=== PATIENT | male | born 1950 | race Caucasian/White ===

== ENCOUNTER 2023-09-15 08:04 | Emergency (ER) | payer MEDICARE, BC, SELFPAY ==
[2023-09-15 08:17] VITALS: BP 182/91
[2023-09-15] MEDS: SUBLIMAZE 50 MCG IV (08:45)
--- NOTE | 2023-09-15 08:56 | ED.GENMED ---
History of Present Illness
General
Chief Complaint: Musculo-Skeletal Complaint
Time Seen by Provider: 09/15/23 08:18
Travel History
Have you had any contact with someone who has COVID-19?: No
Do you have any symptoms of coronavirus? Fever > 100 degrees, chills, cough, shortness of breath, sore throat, loss of taste or smell, muscle aches, or headache?: No
History of Present Illness
History of Present Illness:
73-year-old male with history of hypertension and tobacco use presents to the emergency department for evaluation of left shoulder and arm injury after a fall. States he slipped on ice. He is adamant that he did not strike his head. Denies any
neck pain or back pain. Does not take anticoagulants but does take clopidogrel due to prior CVA.
Past History
Past History
ED Past Medical History: CVA (R weakness X 2), HTN, Hypercholesterolemia, Psychiatric (A/D) and Other (Rheumatoid arthritis , carpal tunnel)
ED Past Surgical History: Orthopedic (lumbar laminectomy; carpal tunnel release)
Social History
Tobacco: Former smoker
Alcohol: Occasional
Drug: None
Personal: Single
Living: alone
Family History
Family History: Other (reviewed and non-contributory)
Review of Systems
Review of Systems
Allergies reviewed?: Yes
All Other Systems: ROS reviewed and negative except as documented in HPI and ROS
Phy Exam
Physical Exam
Physical Exam:
GEN: Well appearing, NAD, generally disheveled, appears older than stated age
HEENT: Normocephalic atraumatic oral mucosa moist, no scleral icterus
Cardiac: Regular rate and rhythm
Lung: No respiratory distress, no tachypnea
MSK: Significant swelling to the left shoulder with no obvious deformity or sulcus left elbow and wrist range of motion normal, sensation intact distal to the shoulder injury
Skin: Good color, no pallor or jaundice, no rashes
Neuro: AO x3, cranial nerves II through XII grossly intact, moves all extremities freely
Psych: Calm, cooperative
Course
Orders/Labs/Results
Orders:
Orders
09/15/23 08:33
Fentanyl Citrate/Pf [Sublimaze] 50 mcg IV NOW STA
CR Shoulder, Trauma - Left Urgent
Reason For Exam: injury
09/15/23 09:22
Ketorolac [Toradol] 15 mg IV NOW STA
Vital Signs
Initial and Last Documented VS:
Initial Vital Signs
Temp Pulse Resp Pulse Ox
97.5 F 97 16 100
09/15/23 08:11 09/15/23 08:11 09/15/23 08:11 09/15/23 08:11
Last Documented Vital Signs
Temp Pulse Resp BP Pulse Ox
97.5 F 90 16 142/74 98
09/15/23 08:11 09/15/23 10:07 09/15/23 10:07 09/15/23 10:07 09/15/23 10:07
MDM/Problems Addressed
MDM/Problems Addressed:
X-rays left shoulder independently interpreted by me show a humeral neck fracture without significant displacement and aligned glenohumeral joint. Patient is placed in a sling and recommend close outpatient orthopedic follow-up. He has no external
signs of head trauma and is neurologically intact, no indication for CT head given that the patient is quite adamant that there was no head strike
*Critical Care Note
Total Time (30-74mins, 75-104mins- exclusive of procedures): Not Applicable
ED Attending Note
-
Portions of this chart may have been created with voice recognition software.� Occasional wrong word or��sound alike� substitutions may have occurred due to the inherent limitations of voice recognition software.
Discharge Plan
Departure
Patient Disposition: Home (Routine Discharge)
Date of Disposition: 09/15/23
Time of Disposition: 09:22
Patient with high blood pressure during this ER visit?: No
Discharge Problem:
Closed fracture of left proximal humerus
Instructions: Shoulder Fracture (DC)
Prescriptions:
No Action
lisinopril 20 MG tablet
20 mg PO DAILY
metoprolol tartrate 25 MG tablet
12.5 mg PO BID
atorvastatin 40 MG tablet
40 mg PO QPM 0RF
clopidogrel 75 MG tablet
75 mg PO DAILY Qty: 90 0RF
cyanocobalamin (vitamin B-12) 1,000 MCG tablet
1,000 mcg PO DAILY
Referrals:
Pedro Luis Vegas MD [Family Provider] -
Raul Crabtree MD [Active] -
Activity Restrictions/Additional Instructions:
Ice the shoulder often to reduce pain and swelling
Take tylenol 650mg every 6-8 hours
Interventions
Interventions:
*Risk Screen - Suicide Last Done: 09/15/23 08:11
*General Assessment Last Done: 09/15/23 08:11
*Neglect/Abuse Screening Last Done: 09/15/23 10:20
ED- Fall Risk Assessment Last Done: 09/15/23 08:17
*ED COVID-19 Vaccine History Last Done: 09/15/23 08:18
*Nursing Disposition Last Done: 09/15/23 10:20
ED-Musculoskeletal Assessment Last Done: 09/15/23 08:17
Discharge Date and Time
Discharge Date/Time: 09/15/23 10:21
[2023-09-15 10:07] VITALS: BP 142/74
== END 2023-09-15 10:21 | disposition home or self-care (01) ==
LOC: EMR 08:04
PROVIDERS: EMERGENCY PHYSICIAN Emergency Medicine; FAMILY PHYSICIAN Family Medicine
DX: S42.202A Unspecified fracture of upper end of left humerus, initial encounter for closed fracture (principal); W00.0XXA Fall on same level due to ice and snow, initial encounter; I10 Essential (primary) hypertension; E78.00 Pure hypercholesterolemia, unspecified; I69.351 Hemiplegia and hemiparesis following cerebral infarction affecting right dominant side; F41.9 Anxiety disorder, unspecified; F32.A Depression, unspecified; M06.9 Rheumatoid arthritis, unspecified; Z87.891 Personal history of nicotine dependence; Z79.02 Long term (current) use of antithrombotics/antiplatelets; Z88.8 Allergy status to other drugs, medicaments and biological substances
CPT/HCPCS: 99284; 96374; 73030

== ENCOUNTER 2023-12-21 01:52 | Emergency (ER) | payer MEDICARE, BC, SELFPAY ==
[2023-12-21 01:54] VITALS: BP 165/65; BMI 24.8
--- NOTE | 2023-12-21 02:15 | ED.GENMED ---
History of Present Illness
General
Chief Complaint: Fall
Source: patient
Exam Limitations: none
Time Seen by Provider: 12/21/23 02:06
Nursing documentation reviewed up to this point in time: agreed with
Travel History
Have you had any contact with someone who has COVID-19?: No
Do you have any symptoms of coronavirus? Fever > 100 degrees, chills, cough, shortness of breath, sore throat, loss of taste or smell, muscle aches, or headache?: No
History of Present Illness
History of Present Illness:
Patient presents to ED secondary to persistent left shoulder pain, after he tripped and fell at home this evening. Denies any other injuries from the fall. Denies headache. Denies neck pain. Denies loss of sensation or weakness. Denies chest
pain. Denies abdominal pain. Denies difficulty with ambulation.
Past History
Past History
ED Past Medical History: CVA (R weakness X 2), HTN, Hypercholesterolemia, Psychiatric (A/D) and Other (Rheumatoid arthritis , carpal tunnel)
ED Past Surgical History: Orthopedic (lumbar laminectomy; carpal tunnel release)
Social History
Tobacco: Former smoker
Alcohol: Occasional
Drug: None
Personal: Single
Living: alone
Family History
Family History: Other (reviewed and non-contributory)
Review of Systems
Review of Systems
Allergies reviewed?: Yes
All Other Systems: ROS reviewed and negative except as documented in HPI and ROS
Constitutional: Reports no symptoms
Musculoskeletal: Reports other (shoulder pain)
Skin: Reports other (abrasion)
Neurological: Reports no symptoms; Denies weakness
Phy Exam
Physical Exam
Physical Exam:
Physical Exam
General: mild painful distress, not acutely ill. afebrile
Head: nc/at. eomi
Neck: supple. normal range of motion.
Heart: s1/s2 regular rate and rhythm, no murmur. equal radial pulses.
Lungs: no acute respiratory distress. clear bilaterally. chest wall nontender to palpation.
Abdomen: normal bowel sounds. not tender.
Neuro: alert and oriented. no focal neurological deficits
Skin: superficial skin tear/abrasion noted, over prox forearm, distal to olecranon, without active bleeding
Psychiatric: well kept. interactive and cooperative
Extremities: diffuse left shoulder tenderness to palpation without obvious deformity
Course
Orders/Labs/Results
Orders:
Orders
12/21/23 02:05
Shoulder, Left, Trauma CR [CR Shoulder, Trauma - Left] Urgent
Comment:
Reason For Exam: pain and injury
12/21/23 05:19
Case Management Consult ONCE
Case Management Consult: Discharge Planning
12/21/23 06:58
Pt Eval And Treat Urgent
Activity Level: Ambulate
Vital Signs
Initial and Last Documented VS:
Initial Vital Signs
Temp Pulse Resp BP Pulse Ox
98.3 F 64 18 165/65 100
12/21/23 01:54 12/21/23 01:54 12/21/23 01:54 12/21/23 01:54 12/21/23 01:54
Last Documented Vital Signs
Temp Pulse Resp BP Pulse Ox
98.3 F 78 20 142/76 97
12/21/23 01:54 12/21/23 09:00 12/21/23 09:00 12/21/23 09:00 12/21/23 09:00
MDM/Problems Addressed
MDM/Problems Addressed:
Pt does not wish to receive any pain medication during initial evaluation.
Shoulder x-ray reviewed. Patient otherwise remains neurologically intact. Patient will be placed in splint and provided with arm sling, along with orthopedic surgery follow-up as an outpatient.
*Critical Care Note
Total Time (30-74mins, 75-104mins- exclusive of procedures): Not Applicable
ED Attending Note
-
Portions of this chart may have been created with voice recognition software.� Occasional wrong word or��sound alike� substitutions may have occurred due to the inherent limitations of voice recognition software.
Discharge Plan
Departure
Patient Disposition: Home (Routine Discharge)
Date of Disposition: 12/21/23
Time of Disposition: 03:03
Patient with high blood pressure during this ER visit?: Yes
Discharge Problem:
Fracture, humerus
Instructions: How to Use a Shoulder Sling ED, Upper Arm Fracture ED
Prescriptions:
No Action
lisinopril 20 MG tablet
20 mg PO DAILY
metoprolol tartrate 25 MG tablet
12.5 mg PO BID
atorvastatin 40 MG tablet
40 mg PO QPM 0RF
clopidogrel 75 MG tablet
75 mg PO DAILY Qty: 90 0RF
cyanocobalamin (vitamin B-12) 1,000 MCG tablet
1,000 mcg PO DAILY
Referrals:
Jose Alejandro Nicholson MD [Active] -
Pedro Luis Vegas MD [Family Provider] -
Activity Restrictions/Additional Instructions:
As discussed, please follow-up with referred orthopedic surgeon for further evaluation and treatment.
Interventions
Interventions:
*Risk Screen - Suicide Last Done: 12/21/23 09:50
*General Assessment Last Done: 12/21/23 01:54
*Neglect/Abuse Screening Last Done: 12/21/23 01:54
ED- Fall Risk Assessment Last Done: 12/21/23 01:54
*ED COVID-19 Vaccine History Last Done: 12/21/23 01:54
*Nursing Disposition Last Done: 12/21/23 09:50
ED-Musculoskeletal Assessment Last Done: 12/21/23 03:17
ED- Neurological Assessment Last Done: 12/21/23 03:17
ED-Skin Assessment Last Done: 12/21/23 03:17
Discharge Date and Time
Discharge Date/Time: 12/21/23 10:45
Print Language: CAMBODIAN
--- NOTE | 2023-12-21 08:38 | CM ---
Patient seen at bedside. Patient states that he lives alone in a 3 bedroom apartment with 3 steps to enter. Patient PCP is Dr. Vegas and he uses the [facility] for his pharmacy needs. Patient does not drive, he walks. Patient indicated that he [place] 2[place]iles [place], and that he has a friend that will help with transportation today. Therapy assessed patient and patient able to function in room. Patient plan is for discharge home with no needs. CM offered VN and patient considering. CM will continue
to follow for discharge planning needs.
Plan; home with VN vs home with no needs.
[2023-12-21 09:00] VITALS: BP 142/76
== END 2023-12-21 10:45 | disposition home or self-care (01) ==
LOC: EMR 01:52
PROVIDERS: EMERGENCY PHYSICIAN Emergency Medicine; FAMILY PHYSICIAN Family Medicine
DX: S42.212A Unspecified displaced fracture of surgical neck of left humerus, initial encounter for closed fracture (principal); W01.0XXA Fall on same level from slipping, tripping and stumbling without subsequent striking against object, initial encounter; Y92.009 Unspecified place in unspecified non-institutional (private) residence as the place of occurrence of the external cause; Z86.73 Personal history of transient ischemic attack (TIA), and cerebral infarction without residual deficits; I10 Essential (primary) hypertension; E78.00 Pure hypercholesterolemia, unspecified; M06.9 Rheumatoid arthritis, unspecified; Z87.891 Personal history of nicotine dependence
CPT/HCPCS: 99283; 73030

== ENCOUNTER → 2023-12-31 06:55 | Outpatient (REF) | payer MEDICARE, BC, SELFPAY | LOC: RAD 06:55 | PROVIDERS: ATTENDING PHYSICIAN Physician Assistant Surgical; FAMILY PHYSICIAN Family Medicine | DX: S42.292A Other displaced fracture of upper end of left humerus, initial encounter for closed fracture (principal) | CPT/HCPCS: 73200 ==

== ENCOUNTER → 2024-01-06 13:11 | Outpatient (REF) | payer MEDICARE, BC, SELFPAY ==
[2024-01-06 13:36] VITALS: BMI 24.6
[2024-01-06 14:46] LABS: Hemoglobin 10.4 g/dL (13.0-18.0); Mean Corp Hgb Conc. 34.7 g/dL (33.0-37.0); Mean Corpuscular Hgb 32.6 pg (27.0-31.0); Mean Platelet Volume 9.8 fL (7.4-10.4); Platelet Count 339 10^3/uL (130-400); Red Blood Cell Count 3.19 10^6/uL (4.70-6.10); Red Cell Dist. Width 13.4 % (11.5-14.5)
== END ==
LOC: SDSPAT 13:11
PROVIDERS: ATTENDING PHYSICIAN Orthopaedic Surgery Hand Surgery; FAMILY PHYSICIAN Family Medicine
DX: Z01.818 Encounter for other preprocedural examination (principal)
CPT/HCPCS: 36415; 85027; 93005

== ENCOUNTER 2024-01-13 06:02 | Day surgery (SDC) | payer MEDICARE, BC, SELFPAY ==
[2024-01-13] VITALS (10 sets, daily range): BP systolic 107–152; BP diastolic 43–87; BMI 24.8
[2024-01-13] MEDS: NORMOSOL-R 1000 IV (06:47)
[2024-01-13] MEDS: CELEBREX 200 MG PO (06:47)
[2024-01-13] MEDS: TYLENOL 1000 MG PO (06:47)
== END 2024-01-13 12:40 | disposition home or self-care (01) ==
LOC: SDS 06:02
PROVIDERS: ATTENDING PHYSICIAN Orthopaedic Surgery Hand Surgery; FAMILY PHYSICIAN Family Medicine
DX: S42.302A Unspecified fracture of shaft of humerus, left arm, initial encounter for closed fracture (principal); S46.012A Strain of muscle(s) and tendon(s) of the rotator cuff of left shoulder, initial encounter; X58.XXXA Exposure to other specified factors, initial encounter
CPT/HCPCS: 24515; 23410; C1713; 73060; 76000

== ENCOUNTER 2024-10-08 20:07 | Inpatient (IN) | payer MEDICARE, BC, SELFPAY ==
[2024-10-08] VITALS (10 sets, daily range): BP systolic 128–186; BP diastolic 54–90; BMI 20.9
--- NOTE | 2024-10-08 15:06 | ED.GENMED ---
History of Present Illness
General
Chief Complaint: Fall
Source: patient
Exam Limitations: none
Time Seen by Provider: 10/08/24 15:05
Nursing documentation reviewed up to this point in time: agreed with
History of Present Illness
History of Present Illness:
74-year-old male with past medical history of hypertension, hyperlipidemia, alcohol use, anxiety, depression, presents emergency department today with concerns of altered mental status. EMS reports that patient was found lying on the floor of his
apartment covered in feces. Neighbor reported to EMS that normally patient is very active within the community and leaves his apartment every day and they noticed that he did not leave his apartment for 2 days. Patient himself does not know why he
was lying on the ground, he states that not recall falling, he denies any head trauma. Denies any headache or neck pain. He denies any chest pain, shortness of breath, burning with urination, belly pain. There is no family contact information on
file. He did speak to his primary contact on file, his friend named Josué, who is the manufacturing industrial engineer at the local bar and reports that patient comes to have drinks with him every night but reports that he has not been present for the past 2 days.
Patient states that he feels well and is requesting to go home and he is confused on why he is here today.
Past History
Past History
ED Past Medical History: CVA (R weakness X 2), HTN, Hypercholesterolemia, Psychiatric (A/D) and Other (Rheumatoid arthritis , carpal tunnel)
ED Past Surgical History: Orthopedic (lumbar laminectomy; carpal tunnel release)
Social History
Tobacco: Former smoker
Alcohol: Occasional
Drug: None
Personal: Single
Living: alone
Family History
Family History: Other (reviewed and non-contributory)
Review of Systems
Review of Systems
All Other Systems: ROS reviewed and negative except as documented in HPI and ROS
Phy Exam
Physical Exam
Physical Exam:
General: Patient is chronically ill-appearing but nontoxic. Dried feces noted on lower extremities.
Skin: Warm and dry, no rashes or lesions
Head: Normocephalic, atraumatic
Eyes: Sclera non-icteric. EOMs intact. PERRLA.
Cardiac: Tachycardia, no murmurs
Peripheral Vascular: No lower extremity swelling or edema
Pulm: Normal respiratory effort, no wheezes, rales, rhonchi
Abdomen: No abdominal tenderness to palpation
Neuro: CN II-XII intact, no focal neurologic deficits. GCS 15.
Psychiatric: Oriented to person and place, but not time. Poor insight and judgement.
Course
Orders/Labs/Results
Orders:
Orders
10/08/24 14:59
Electrocardiogram (*1) Urgent
Reason for Study: Abdominal Pain
EKG- Treatment ONCE
10/08/24 15:01
Alcohol Urgent
Complete Blood Count/With Diff Urgent
Comprehensive Metabolic Panel Urgent
Creatine Phosphokinase Urgent
Comment: ADD ON
Magnesium Urgent
Comment: ADD ON
Osmolality, Random Urine Urgent
Date Specimen was Collected: 10/08/24
Time Specimen was Collected: 14:59
Comment: ADD ON
Serum Osmolality Urgent
Comment: ADD ON
Urinalysis Reflex To Culture Urgent
Date Specimen was Collected: 10/08/24
Time Specimen was Collected: 14:59
Urine Microscopic Reflex Cult Urgent
Urine Culture Urgent
ADEEL Source: U
Specimen Description:
Date Specimen was Collected: 10/08/24
Time Specimen was Collected: 14:59
10/08/24 15:21
CT Head W/o Iv Contrast Urgent
Comment:
Reason For Exam: altered mental status
10/08/24 15:22
0.9% Sodium Chloride 500 ml [Nss] 500 ml IV BOLUS
10/08/24 19:31
Admit/Transfer Patient As Directed
Co-Sign Provider:
Level of Care: Inpatient admission
Assign to:: Telemetry
Physician / Group: Pooja Guajardo
Diagnosis: hyponatremia, ETOH withdraw
Reason for Telemetry: Arrhythmia
Date to Stop Telemetry: 10/11/24
Time to Stop Telemetry: 11:00
Reason for Hospitalization: hyponatremia, ETOH withdraw
Expected length of stay greater than two midnights?: Yes
ELOS- Estimated Length of Stay in days: 3
I certify the patient meets the requirements for IP care: Yes
PRN Pain Medication Management As Directed
May give lesser potent ordered pain med per pt: Yes
preference::
Protocol:: Medication orders for pain may be administered in a
manner that supports deferring to patient preference
when the pt is:
- Requesting an ordered lesser potent pain medication.
Least to most potent pain medications are defined
as: acetaminophen < NSAID < tramadol < opioids
(morphine, oxycodone, hydromorphone).
- Requesting a lesser dose of the same medication IF
ORDERED.
- Requesting a less intrusive route of administration
if both routes are prescribed by the provider (PO <
IV).
10/08/24 19:37
Lorazepam [Ativan] 1 mg IV NOW STA
10/08/24 19:49
0.9% Sodium Chloride [Nss (Preservative Free)] 0.5 ml IV NOW STA
10/08/24 20:05
Nicotine [Nicoderm Transdermal] 14 mg TRANSDERM NOW STA
10/08/24 20:43
0.9% Sodium Chloride 1000 ml [Nss] 1,000 ml IV 100 mls/hr
0.9% Sodium Chloride [Nss (Preservative Free)] See Protocol IV PRN PRN
FOLic ACID [Folvite] 1 mg 0.9% Sodium Chloride 50 ml [Nss] 50 ml IV DAILYPRN
Lorazepam [Ativan] 1 mg IV Q1HPRN PRN
Lorazepam [Ativan] 1 mg PO Q2HPRN PRN
Lorazepam [Ativan] 2 mg IV Q1HPRN PRN
10/08/24 20:43
Case Management Consult Once
Case Management Consult: Other
Comment: Substance abuse counseling
DIETARY CONSULT Routine
Reason for Consult: Nutrition support, possible refeeding guidelines
Alcohol Urgent
B-Hydroxybutyrate Urgent
GGTP Urgent
PTT Urgent
Prothrombin Time Urgent
Urinalysis Routine
Urine Drug Abuse Screen Routine
MSAS SCORE As Directed
MSAS Score 0-4: Repeat MSAS every 2 hours until 0-4 for three consecutive assessments, then every 4 hours x 48
hours.
MSAS Score 5-7: For MILD withdrawl symptoms. Repeat MSAS and RASS every 2 hours
MSAS Score 8-11: For MODERATE withdrawal symptoms. Repeat MSAS and RASS every 1 hour. Consider ICU or IMU
level of care.
MSAS Score > 11: For SEVERE withdrawal symptoms. Repeat MSAS and RASS every 1 hour. Notify provider, consider
ICU level of care.
MSAS Additional Instructions: If no improvement or no decrease in score from severe to moderate within 12
hours, consult psychiatry
MSAS Notify Provider: Notify provider if patient requires more than 10 mg of Lorazepam in eight hour period.
DX Deep Vein Thrombosis Video Routine
10/08/24 20:52
Phenobarbital Sodium [Phenobarbital] 260 mg 0.9% Sodium Chloride 100 ml [Nss] 100 ml IV NOW
10/08/24 22:00
Metoprolol [Lopressor] 12.5 mg PO BID
10/09/24 00:00
Thiamine Injection 200 mg IV Q8
10/09/24 08:00
Clopidogrel Bisulfate [Plavix] 75 mg PO DAILY
Cyanocobalamin [Vitamin B-12] 1,000 mcg PO DAILY
FOLic ACID [Folvite] 1 mg PO DAILY
Lisinopril [Zestril] 20 mg PO DAILY
Nicotine [Nicoderm Transdermal] 21 mg TRANSDERM DAILY
Phenobarbital Sodium [Phenobarbital] 97.5 mg IV TID
10/09/24 18:00
Atorvastatin [Lipitor] 40 mg PO QPM
Enoxaparin Sodium [Lovenox] 40 mg SC QPM
10/11/24 08:00
Phenobarbital [Luminal] 64.8 mg PO TID
10/11/24 11:00
DC Protocol for Telemetry ONCE
10/11/24 20:00
Thiamine HCl [Vitamin B1] 100 mg PO BID
10/13/24 08:00
Phenobarbital [Luminal] 32.4 mg PO TID
Abnormal Lab Results
10/08/24
15:01
RBC 4.00 L 10^6/uL
(4.70-6.10)
Hct 36.7 L %
(39.0-52.0)
MCH 33.8 H pg
(27.0-31.0)
Absolute Neuts (auto) 8.0 H 10^3/uL
(1.4-6.5)
Absolute Lymphs (auto) 0.9 L 10^3/uL
(1.2-3.4)
Absolute Monos (auto) 1.2 H 10^3/uL
(0.1-0.6)
Neutrophils % 79.4 H %
(42.2-75.2)
Lymphocytes % 8.5 L %
(20.5-51.1)
Monocytes % 11.7 H %
(1.7-9.3)
Sodium 128 L mmol/L
(135-145)
Chloride 95 L mmol/L
(98-107)
Glucose 100 H mg/dl
(70-99)
Serum Osmolality 268 L mOsm/kg
(275-300)
Total Bilirubin 2.2 H mg/dl
(0.2-1.3)
Creatine Kinase 615 H U/L
(55-170)
Urine Ketones 2+ A
(Negative)
Ur Occult Blood Reflex 2+ A
(Negative)
Urine Urobilinogen 2+ A
(Neg - 1+)
Leukocyte Esterase Rfl 2+ A
(Negative)
Urine RBC 3-6 A /HPF
(0-2)
Urine WBC (Reflex) 21-25 A /HPF
(0-5)
Urine Bacteria (Reflex) Few A
(Negative)
Urine Albumin (Reflex) 2+ A
(Neg - Trace)
10/08/24 15:01
10/08/24 15:01
Vital Signs
Initial and Last Documented VS:
Initial Vital Signs
Temp Pulse Resp BP Pulse Ox
99.1 F 102 20 186/66 99
10/08/24 14:42 10/08/24 14:42 10/08/24 14:42 10/08/24 14:42 10/08/24 14:42
Last Documented Vital Signs
Temp Pulse Resp BP Pulse Ox
97.6 F 91 16 128/61 98
10/08/24 20:59 10/08/24 20:59 10/08/24 20:59 10/08/24 20:59 10/08/24 20:59
MDM/Problems Addressed
Differential Diagnosis Includes:
Differentials include rhabdomyolysis, dehydration, acute CVA, infection, hyponatremia
MDM/Problems Addressed:
74-year-old male presents emergency department today with concerns of altered mental status. He was found in his apartment covered in feces and he is confused and does not recall falling. In light of acute onset hyponatremia, altered mental
status, dehydration status, will admit for continued IV fluid management and further evaluation. Patient case discussed with hospitalist.
*Pulse Oximetry
Patient hypoxic: no
*Critical Care Note
Total Time (30-74mins, 75-104mins- exclusive of procedures): Not Applicable
ED Attending Note
-
Portions of this chart may have been created with voice recognition software.� Occasional wrong word or��sound alike� substitutions may have occurred due to the inherent limitations of voice recognition software.
Discharge Plan
Departure
Patient Disposition: Admit
Date of Disposition: 10/08/24
Time of Disposition: 17:42
Admit to: Med/Surg
Presentation/result/management discussed w/ accepting MD/DO: Hospitalist
Patient with high blood pressure during this ER visit?: Yes
Condition: Fair
Discharge Problem:
Altered mental status, Dehydration, Acute hyponatremia
Interventions
Interventions:
*Risk Screen - Suicide Last Done: 10/08/24 14:42
*General Assessment Last Done: 10/08/24 14:42
*Neglect/Abuse Screening Last Done: 10/08/24 14:42
*ED- Fall Risk Assessment Last Done: 10/08/24 20:38
*ED COVID-19 Vaccine History Last Done: 10/08/24 21:07
*Nursing Disposition Last Done: 10/08/24 20:38
ED-Musculoskeletal Assessment Last Done: 10/08/24 15:00
ED- Neurological Assessment Last Done: 10/08/24 15:00
ED-Skin Assessment Last Done: 10/08/24 15:00
Discharge Date and Time
Discharge Date/Time: 10/08/24 20:38
[2024-10-08 15:10] LABS: % Basophils 0.1 % (0-2); % Immature Granulocytes 0.3 % (0-0.5); % Lymphocytes 8.5 % (20.5-51.1); % Monocytes 11.7 % (1.7-9.3); % Neutrophils 79.4 % (42.2-75.2); Absolute Lymphocytes 0.9 10^3/uL (1.2-3.4); Absolute Monocytes 1.2 10^3/uL (0.1-0.6); Hematocrit 36.7 % (39.0-52.0); Hemoglobin 13.5 g/dL (13.0-18.0); Mean Corp Hgb Conc. 36.8 g/dL (33.0-37.0); Mean Corpuscular Hgb 33.8 pg (27.0-31.0); Mean Corpuscular Volume 91.8 fL (80.0-94.0); Mean Platelet Volume 9.7 fL (7.4-10.4); Nucleated Red Blood Cells % 0 % (-); Platelet Count 247 10^3/uL (130-400); Red Cell Dist. Width 12.8 % (11.5-14.5); White Blood Cell Count 10.1 10^3/uL (4.8-10.8)
[2024-10-08 15:12] LABS: Urine Albumin 2+ (Neg - Trace); Urine Bilirubin Negative (Negative); Urine Character Slightly Cloudy (Clear); Urine Color Yellow; Urine Glucose Negative (Negative); Urine Ketone 2+ (Negative); Urine Leukocyte 2+ (Negative); Urine Nitrite Negative (Negative); Urine Occult Blood 2+ (Negative); Urine Specific Gravity 1.015 (<1.030); Urine Urobilinogen 2+ (Neg - 1+); Urine pH 6.5 (5.0-9.0)
[2024-10-08 15:23] LABS: Urine Bacteria Few (Negative); Urine Squamous Cell 0-2 /LPF (Few); Urine White Cell 21-25 /HPF (0-5)
[2024-10-08 15:28] LABS: ALT (SGPT) 27 U/L (0-50); AST (SGOT) 55 U/L (17-59); Albumin 3.9 g/dl (3.5-5.0); Alkaline Phosphatase 104 U/L (38-126); Blood Urea Nitrogen 10 mg/dl (9-20); Calcium 9.7 mg/dl (8.4-10.2); Carbon Dioxide 24 mmol/L (22-30); Chloride 95 mmol/L (98-107); Estimated Creatinine Clearance 84 ml/min; Glucose 100 mg/dl (70-99); Potassium 4.4 mmol/L (3.5-5.1); Sodium 128 mmol/L (135-145); Total Bilirubin 2.2 mg/dl (0.2-1.3); Total Protein 7.2 g/dl (6.3-8.2); eGFR > 60.00
[2024-10-08 15:41] LABS: Magnesium 2.1 mg/dl (1.6-2.3)
[2024-10-08] MEDS: NSS 500 IV (15:50)
[2024-10-08 16:17] LABS: Creatine Phosphokinase 615 U/L (55-170)
[2024-10-08 16:18] LABS: Alcohol None Detected
[2024-10-08 17:59] LABS: Osmolality Serum 268 mOsm/kg (275-300); Osmolality Urine 440 mOsm/kg (300-900)
--- NOTE | 2024-10-08 18:31 | HPS.HSE ---
Family Physician
-
Family Physician: INTERVIEWE UNKNOWN - PT NOT
Chief Complaint
-
mental status change
History of Present Illness
Patient is a 74-year-old male with past medical history significant for essential hypertension, hyperlipidemia, anxiety/depression and Hx CVA who presented to [facility] ED for evaluation of acute mental status change. Patient lives alone
and neighbor went to check on him as he had not been seen in 2 days, he was found on the floor, covered in his own feces. Friend called 911 and brought patient for evaluation. Friend and medical proxy at bedside who helps provide history. Patient
normally is alert and able to take care of his ADLs, he is known to be incontinent of urine with frequent UTIs. She reports that patient had similar behaviors when he had last stroke. Patient denies any recent symptoms and is agitated at assessment.
Medical History
Past Medical History
Past Medical History: Reports Other
Additional Past Medical History:
essential hypertension
hyperlipidemia
anxiety/depression
Hx CVA
Hx ETOH dependency
Past Surgical History: Reports Other
Additional Past Surgical History:
back surgery
RT elbow surgery
C7-T1 Interlaminar Epidural Steroid Injection 01/27/18
Right C7-T1 Interlaminar Epidural Steroid Injection 02/28/18
Cardiac loop monitor implant ([employer] Linq, [id number]) 03/22/2019
Carpal tunnel 11/2018
Carpal tunnel 01/2020
Cardiac loop monitor explant 11/10/2021
left eye cataract surgery 06/2022
Left Humerus ORIF 01/13/24 AWR
Social History
Tobacco: Smoker (2 packs per day )
Alcohol: Daily (at least 6 beers per day)
Drug: None
Living: Alone
Family History
Family History: Unable to Obtain
Allergies / Home Medications
Allergies reflects when Allergies were last updated in [facility].
Home Medications with original date entered in [facility]
Allergy/Medication List:
Allergies
Allergy/AdvReac Type Severity Reaction Status Date / Time
infliximab [From Remicade] Allergy Hives, Verified 10/08/24 14:54
THROAT
SWELLING
Home Medications
metoprolol tartrate 25 mg tablet 12.5 mg PO BID 03/15/19
atorvastatin 40 mg tablet 40 mg PO QPM 03/23/19
clopidogrel 75 mg tablet 75 mg PO DAILY #90 tabs 03/23/19
cyanocobalamin (vitamin B-12) 1,000 mcg tablet 1,000 mcg PO DAILY 11/10/21
lisinopril 20 mg tablet 20 mg PO DAILY 10/08/24
Review of Systems
-
Unable to obtain full review of systems at this time due to: Other (acute mental status change )
Physical Exam
Vital Signs
Vital Signs
Temp Pulse Resp BP Pulse Ox
99.1 F 102 20 186/66 99
10/08/24 14:42 10/08/24 14:42 10/08/24 14:42 10/08/24 14:42 10/08/24 14:42
Physical Exam
General: Well Developed, Poor Appetite and Appears Chronically Ill
HEENT: NormoCephalic, Atraumatic, Nose Appears Normal and Ears Appear Normal
Respiratory: Clear and Non Labored Respirations
Cardiac: S1/S2, Regular Rhythm and Tachycardia; No Murmur, Rub or Gallop
Breast: Deferred by me
GI: Soft, Non Tender, Non Distended and Normal Bowel Sounds; No Organomegaly
Rectal: Deferred by Provider
Genito-urinary: Deferred by me
Musculoskeletal: No Clubbing, No Cyanosis and No Edema
Skin: Warm and IV/Catheter Site; No Rash
Neuro: Awake, Alert and Nonfocal/grossly intact
Psych: Agitated
Laboratory Results
-
10/08/24 15:01
10/08/24 15:01
Laboratory Results
Total Bilirubin 2.2 mg/dl (0.2-1.3) H 10/08/24 15:01
AST 55 U/L (17-59) 10/08/24 15:01
ALT 27 U/L (0-50) 10/08/24 15:01
Alkaline Phosphatase 104 U/L (38-126) 10/08/24 15:01
Data Reviewed
-
CT Scan: Report Reviewed by me (Head CT: No acute intracranial abnormality noted.)
Medical Tests (Nuc Med, Echo, EKG etc): Report Reviewed by me (EKG: SINUS RHYTHM WITH PREMATURE ATRIAL COMPLEXES RIGHT BUNDLE BRANCH BLOCK)
Lab Data: Labs Reviewed by me (Na+ 128, CK 615)
Impression/Plan
-
IMPRESSION/PLAN:
#acute change in mental status 2/2 hyponatremia/rhabdo vs. ETOH withdraw
Head CT: No acute intracranial abnormality noted.
EKG: SINUS RHYTHM WITH PREMATURE ATRIAL COMPLEXES
RIGHT BUNDLE BRANCH BLOCK
CK 615
- admit to telemetry
- MSAS protocol with phenobarb taper
- IVF
#hyponatremia
Na 128
- bolus NSS
- monitor BMP
#essential hypertension
- continue lisinopril
#hyperlipidemia
- continue atorvastatin
#Hx CVA
- continue clopidogrel
#anxiety/depression
#Hx ETOH dependency
Code status: full code
DVT Prophylaxis: Lovenox sq
--- NOTE | 2024-10-08 18:58 | EDRN ---
on arrival pt was completely covered in stool and urine, all the way to his toes. Pants were crusted in stool and urine, Pt. had rags stuffed into his pants which he states 'help keep him clean.' Some redness noted to his back and buttocks. Pt.
completely undressed and cleaned.
--- NOTE | 2024-10-08 19:39 | W.PN.UPDATE ---
Update Note
Progress Note Update
This is an addendum to the H&P written by Racquel Villagomez on 10/08/2024. Patient seen and examined independently with PROCEDURES TECH.
74-year-old male hypertension, hyperlipidemia, anxiety/depression, prior CVA, alcohol use disorder, presenting that he was found down on the ground in his apartment covered in feces. Does not seem to remember why on the ground. Was not seen 2
days. Patient denies complaints and wants to go home.
Patient did not drink alcohol in 3 days was drinking at least 6 beers per day at that time.
Patient tachycardic. EKG shows sinus rhythm with premature atrial complexes, right bundle branch block which is old.
Labs show mild hyponatremia sodium of 128. Creatinine kinase of 615.
Alcohol level negative.
Patient with ambulatory dysfunction/possible fall likely secondary to alcohol use disorder. Mild hyponatremia likely secondary to poor p.o. intake/alcohol use. Mild rhabdomyolysis. IV fluids, thiamine and folate, alcohol withdrawal protocol,
phenobarbital protocol.
[2024-10-08] MEDS: NSS (PRESERVATIVE FREE) 0.5 ML IV (20:00)
[2024-10-08] MEDS: ATIVAN 1 MG IV ×3 (20:00→23:13)
[2024-10-08] MEDS: NICODERM TRANSDERMAL 14 MG TRANSDERM (20:19)
[2024-10-08] MEDS: PHENOBARBITAL 104 MG IV (21:22)
[2024-10-08] MEDS: NSS 1000 IV (21:23)
[2024-10-08] MEDS: LOPRESSOR 12.5 MG PO (22:12)
[2024-10-08 23:08] LABS: INR 0.93; PT 12.8 Sec (11.4-14.6)
--- NOTE | 2024-10-08 23:08 | W.PN.UPDATE ---
Update Note
Progress Note Update
pt msas scores progressively getting worse now >8 warranting transfer to IMU for closer monitoring.
[2024-10-08 23:09] LABS: APTT 28.6 Sec (23.4-35.0)
[2024-10-08 23:29] LABS: GGTP 17 U/L (15-73)
[2024-10-08 23:30] LABS: Alcohol None Detected
[2024-10-08 23:36] LABS: B-Hydroxybutyrate 0.94 mmol/L (0.02-0.27)
[2024-10-09] VITALS (29 sets, daily range): BP systolic 125–175; BP diastolic 45–105; BMI 21.3
--- NOTE | 2024-10-09 00:01 | PTCARENOTE ---
Pt. rec'd from ED into room oriented to self only, restless, actively hallucinating. Vitals stable. NSR on the monitor. Pt. grossly incontinent of urine. Pt. settled and admission completed. Becoming more agitated even following phenobarbital
loading dose, MSAS score 8 then 9. Ativan 1 mg IV given x 2. Hospitalist [employer] Elina notified of pt.'s MSAS score and presentation, decision made to transfer pt. to IMU level of care for closer monitoring. Report given to HORTENCIA Duckworth. Pt.
transferred with belongings to room 9858.
[2024-10-09] MEDS: THIAMINE INJECTION 200 MG IV ×3 (00:13→16:11)
--- NOTE | 2024-10-09 00:17 | PTCARENOTE ---
Pt received from 4W, lethargic at this time, VSS, NSR on monitor. New IV placed. NS infusing 100mls/hr. 100% RA. CC applied. MSAS 5 at this time.
[2024-10-09 05:23] LABS: Blood Urea Nitrogen 9 mg/dl (9-20); Carbon Dioxide 21 mmol/L (22-30); Chloride 100 mmol/L (98-107); Creatine Phosphokinase 354 U/L (55-170); Estimated Creatinine Clearance 91 ml/min; Glucose 77 mg/dl (70-99); Potassium 4.6 mmol/L (3.5-5.1); Sodium 128 mmol/L (135-145); eGFR > 60.00
[2024-10-09] MEDS: NSS 1000 IV ×2 (06:35→16:11)
--- NOTE | 2024-10-09 07:47 | W.PN.HOSP.TC ---
Today's Communication/Plan
-
Continue Phenobarbital Taper, alcohol withdrawal protocol, vitamins including thiamine, folate
Assessment / Plan
Assessment / Plan
Physical Exam
General: Not in acute distress
HEENT: Normocephalic, Atraumatic
Respiratory: Clear to Auscultation Bilaterally
Cardiac: S1/S2, Regular Rate and Rhythm
GI: Soft, Non Tender, Non Distended and Normal Bowel Sounds
Musculoskeletal: No Cyanosis and No Edema
Skin: Warm. Dry.
Neuro: Awake, Alert and Nonfocal/grossly intact
Psych: Calm
Assessment/Plan
74-year-old male with past medical history of hypertension, hyperlipidemia, anxiety/depression, prior CVA, alcohol use disorder, presenting that he was found down on the ground in his apartment covered in feces. Patient did not seem to remember why
he was on the ground. Was not seen 2 days. Friend called 911 and brought patient for evaluation. Friend and medical proxy at bedside who helps provide history. Patient denied complaints and initially said he wanted to go home. Patient did not
drink alcohol in 3 days was drinking at least 6 beers per day at that time. Patient tachycardic initially. EKG showed sinus rhythm with premature atrial complexes, right bundle branch block which is old. Labs showed mild hyponatremia sodium of 128.
Creatinine kinase of 615. Alcohol level negative. Patient with ambulatory dysfunction/possible fall likely secondary to alcohol use disorder. Mild hyponatremia likely secondary to poor p.o. intake/alcohol use. Patient normally is alert and able to
take care of his ADLs, he is known to be incontinent of urine with frequent UTIs. She reports that patient had similar behaviors when he had last stroke.
#ambulatory dysfunction/possible fall likely secondary to alcohol use disorder.
#acute change in mental status suspected secondary to alcohol use
- Continue monitoring in IMU level of care for now given recent high MSAS scores
- Continue MSAS protocol with thiamine and folate, alcohol withdrawal protocol, phenobarbital protocol
- IVF
- Continue monitoring in IMU
#hyponatremia likely secondary to poor p.o. intake/alcohol use
- Na 128 without any change
- IV fluids being given
- Monitor BMP
#Elevated CPK/Mild Rhabdomyolysis
-CPK 615 initially --> improved to 354
-Improving with IV fluids
#essential hypertension
- continue lisinopril
#hyperlipidemia
- continue atorvastatin
#Hx CVA
- continue clopidogrel
#anxiety/depression
#Hx ETOH dependency
Code status: full code
DVT Prophylaxis: Lovenox sq
Anticipated Discharge: > 48 hours
Subjective/Interval History
-
Date of Service: October 09, 2024
Patient was seen and examined. Overnight, patient was transferred to IMU level of care due to increased MSAS scores. He was sleeping this morning, and he was able to awakened somewhat.
Objective Data
-
Labs:
Laboratory Results
10/08/24 10/09/24
22:52 04:30
PT 12.8
INR 0.93
APTT 28.6
Sodium 128 L
Potassium 4.6
Chloride 100
Carbon Dioxide 21 L
BUN 9
Creatinine 0.6 L
Glucose 77
Calcium 9.0
Vital Signs:
Vital Signs
Temp Pulse Resp BP Pulse Ox
97 F 70 19 150/58 100
10/09/24 07:38 10/09/24 06:30 10/09/24 06:30 10/09/24 06:00 10/09/24 06:30
I&O
10/08/24 10/09/24 10/10/24
06:59 06:59 06:59
Intake Total 700 / 700
Output Total 350 / 350
Balance 350 / 350
[2024-10-09] MEDS: VITAMIN B-12 1000 MCG PO (09:00)
[2024-10-09] MEDS: PLAVIX 75 MG PO (09:00)
[2024-10-09] MEDS: LOPRESSOR 12.5 MG PO ×2 (09:00→19:46)
[2024-10-09] MEDS: ZESTRIL 20 MG PO (09:00)
[2024-10-09] MEDS: FOLVITE 1 MG PO (09:00)
[2024-10-09] MEDS: NICODERM TRANSDERMAL 21 MG TRANSDERM (09:00)
[2024-10-09] MEDS: PHENOBARBITAL 97.5 MG IV ×3 (09:04→21:21)
--- NOTE | 2024-10-09 10:55 | CM ---
CM following re: discharge planning.
Reviewed pt's chart, met with pt. CM spoke to pt;'s sister eulalia [phone] and pt's friend/barrel plater Josué
Pt is a 74 year old male, admitted with primary dx of acute mental status change. Per EMS, he was found on the floor, covered in his own feces.
Pt is not a great historian. Pt's sister eulalia called and she stated that pt's landlord called her and stated that pt will not be able to return back to his apartment because he made his apartment inhabitable. Pt's sister stated she cannot take the
pt to her place in [facility], pt's brother lives in [place] and cannot help neither. Pt's sister did say that she does not have a good report with the pt even she helped him to get a new apartment 3 years ago when pt made his old apartment inhabitable. Per
sister, pt had CVA in 2019, went to [facility] and signed himself out from both SNFs. Per sister, pt is [place] and enrolled with [employer] for benefits, mostly medication coverage. Pt's sister went to tears asking to
help his brother. Emotional support offered and provided.
CM spoke to pt's friend Josué who is listed as a personnel technician. Josué stated he is not pt's friend, his is a barrel plater and works in a bar one block down pt's apartment. per Josué pt comes to the bar every morning to have 3 12Oz beer and afternoon for
the same amount of drink. Per Josué, he noticed that pt became more confused than usual and he stated he feels that pt has Dementia. Josué expressed his disappointed feelings regarding pt's inability to return back to his apartment. Josué did say that
pt has a sister and she and the pt are not getting along with each other.
Pt referred to [facility] will meet with the pt when clinically appropriate
PCP: [facility]
D/C plan: uncertain at this time and will depend on pt's progress.
CM will follow with discharge plan updates as hospitalization progresses
--- NOTE | 2024-10-09 12:00 | PTCARENOTE ---
Complete assessment done and documented in worklist. MSAS=4. PT oriented to name only, Pt will follow simple commands, and the go back to sleep. HR SR with BBB, O2 sat=98-99% on R/A. Condom cath in place. Pt IMU status, and may go to IMU bed when
available.
[2024-10-09] MEDS: LOVENOX 40 MG SC (18:29)
[2024-10-09] MEDS: LIPITOR PO ×2 (18:29→18:32)
--- NOTE | 2024-10-09 18:33 | PTCARENOTE ---
Peritoneal scrub done, but pt remains with urine odor on skin/pores. Pt busted and turned.
[2024-10-09] MEDS: ATIVAN 1 MG PO (19:46)
[2024-10-09 20:20] LABS: Amphetamines Negative (Negative); Barbiturates Positive (Negative); Benzodiazepines Positive (Negative); Buprenorphine Negative (Negative); Cocaine Negative (Negative); Marijuana Negative (Negative); Methadone Negative (Negative); Methamphetamines Negative (Negative); Opiates Negative (Negative); Phencyclidine Negative (Negative); Tricyclic Antidepressants Negative (Negative)
[2024-10-09 20:37] LABS: Fentanyl, Urine Negative (Negative)
[2024-10-09 20:48] LABS: Urine Albumin Negative (Neg - Trace); Urine Bilirubin Negative (Negative); Urine Character Clear (Clear); Urine Color Yellow; Urine Glucose Negative (Negative); Urine Ketone 3+ (Negative); Urine Leukocyte Negative (Negative); Urine Nitrite Negative (Negative); Urine Occult Blood Negative (Negative); Urine Urobilinogen 2+ (Neg - 1+)
--- NOTE | 2024-10-09 21:05 | PTCARENOTE ---
assumed care, pt oriented to name and only, MSAS per worklist, follows commands, pt c/o shoulder pain LOCATION AND MEASUREMENT TECHNICIAN made aware, NS on the monitor with PACs, in and out AFIB LOCATION AND MEASUREMENT TECHNICIAN made aware, EKG ordered, + radials, doppler pedals, Lungs clear on RA 99%, BSx4
hyperactive, CC draining yellow output, 20G RFA NS 100ml, safe environment provided, bed alarm on, otherwise refer to documentation.
[2024-10-09] MEDS: PERCOCET 5/325 1 TABLET PO (21:20)
[2024-10-10] VITALS (12 sets, daily range): BP systolic 125–167; BP diastolic 40–63; BMI 21.0
[2024-10-10] MEDS: THIAMINE INJECTION 200 MG IV ×4 (00:59→23:56)
[2024-10-10] MEDS: NSS 1000 IV ×2 (01:00→22:41)
[2024-10-10 04:26] LABS: Hematocrit 33.8 % (39.0-52.0); Hemoglobin 11.8 g/dL (13.0-18.0); Mean Corp Hgb Conc. 34.9 g/dL (33.0-37.0); Mean Corpuscular Hgb 33.1 pg (27.0-31.0); Mean Corpuscular Volume 94.7 fL (80.0-94.0); Mean Platelet Volume 9.8 fL (7.4-10.4); Platelet Count 193 10^3/uL (130-400); Red Blood Cell Count 3.57 10^6/uL (4.70-6.10); Red Cell Dist. Width 13.2 % (11.5-14.5); White Blood Cell Count 7.4 10^3/uL (4.8-10.8)
[2024-10-10 04:31] LABS: Blood Urea Nitrogen 9 mg/dl (9-20); Calcium 8.6 mg/dl (8.4-10.2); Carbon Dioxide 23 mmol/L (22-30); Chloride 101 mmol/L (98-107); Creatine Phosphokinase 83 U/L (55-170); Estimated Creatinine Clearance 78 ml/min; Glucose 76 mg/dl (70-99); Magnesium 1.9 mg/dl (1.6-2.3); Potassium 3.8 mmol/L (3.5-5.1); Sodium 128 mmol/L (135-145); eGFR > 60.00
[2024-10-10] MEDS: PHENOBARBITAL 97.5 MG IV (08:08)
[2024-10-10] MEDS: NICODERM TRANSDERMAL 21 MG TRANSDERM (08:11)
[2024-10-10] MEDS: LOPRESSOR PO ×2 (08:15→22:43)
[2024-10-10] MEDS: FOLVITE PO (08:15)
[2024-10-10] MEDS: VITAMIN B-12 PO (08:16)
[2024-10-10] MEDS: ZESTRIL PO (08:16)
[2024-10-10] MEDS: PLAVIX PO (08:16)
--- NOTE | 2024-10-10 08:18 | W.PN.HOSP.TC ---
Today's Communication/Plan
-
See plan
Assessment / Plan
Assessment / Plan
Physical Exam
General: Not in acute distress
HEENT: Normocephalic, Atraumatic
Respiratory: Clear to Auscultation Bilaterally
Cardiac: S1/S2, Regular Rate and Rhythm
GI: Soft, Non Tender, Non Distended and Normal Bowel Sounds
Musculoskeletal: No Cyanosis and No Edema
Skin: Warm. Dry.
Neuro: Lethargic.
Psych: Calm
Assessment/Plan
74-year-old male with past medical history of hypertension, hyperlipidemia, anxiety/depression, prior CVA, alcohol use disorder, presenting that he was found down on the ground in his apartment covered in feces. Patient did not seem to remember why
he was on the ground. Was not seen 2 days. Friend called 911 and brought patient for evaluation. Friend and medical proxy at bedside who helps provide history. Patient denied complaints and initially said he wanted to go home. Patient did not
drink alcohol in 3 days was drinking at least 6 beers per day at that time. Patient tachycardic initially. EKG showed sinus rhythm with premature atrial complexes, right bundle branch block which is old. Labs showed mild hyponatremia sodium of 128.
Creatinine kinase of 615. Alcohol level negative. Patient with ambulatory dysfunction/possible fall likely secondary to alcohol use disorder. Mild hyponatremia likely secondary to poor p.o. intake/alcohol use. Patient normally is alert and able to
take care of his ADLs, he is known to be incontinent of urine with frequent UTIs. She reports that patient had similar behaviors when he had last stroke.
#ambulatory dysfunction/possible fall likely secondary to alcohol use disorder.
#acute change in mental status suspected secondary to alcohol use
- Continue monitoring in IMU level of care for now given recent high MSAS scores
- Continue MSAS protocol with thiamine and folate, alcohol withdrawal protocol, phenobarbital protocol
- IVF
#hyponatremia likely secondary to poor p.o. intake/alcohol use
- Na 128 without any change
- IV fluids given
- Monitor BMP
#Elevated CPK/Mild Non-Traumatic Rhabdomyolysis
-CPK 615 initially --> improved to 354 --> now down to normal after IV fluids
#essential hypertension
- continue lisinopril
#hyperlipidemia
- continue atorvastatin
#Hx CVA
- continue clopidogrel
#anxiety/depression
#Hx ETOH dependency
Code status: full code
DVT Prophylaxis: Lovenox sq
Anticipated Discharge: > 48 hours
Subjective/Interval History
-
Date of Service: October 10, 2024
Patient was seen and examined. Overnight he needed Percocet for shoulder pain. No other new symptoms or complaints.
Objective Data
-
Labs:
Laboratory Results
10/10/24
03:46
WBC 7.4
Hgb 11.8 L
Hct 33.8 L
Plt Count 193 D
Sodium 128 L
Potassium 3.8
Chloride 101
Carbon Dioxide 23
BUN 9
Creatinine 0.7
Glucose 76
Calcium 8.6
Vital Signs:
Vital Signs
Temp Pulse Resp BP Pulse Ox
97.8 F 62 20 125/40 99
10/10/24 07:38 10/10/24 06:00 10/10/24 06:00 10/10/24 06:00 10/09/24 21:45
I&O
10/09/24 10/10/24 10/11/24
06:59 06:59 06:59
Intake Total 700 / 700 2640 / 2640
Output Total 350 / 350 1100 / 1100
Balance 350 / 350 1540 / 1540
--- NOTE | 2024-10-10 13:27 | PN.CDI ---
CDI
- -
CDI:
Physician Documentation Request
Admit Date: 10/08/24 20:07
Dear Doctor Nabil,
Patient found on ground covered in feces prior to arrival. Last seen 2 days ago. History of alcohol use disorder.
Progress notes include a diagnosis of rhabdomyolysis.
Please clarify the type of rhabdomyolysis
Traumatic
Non-traumatic
Other
Use of terms such as suspected, likely, concern for, or probable (associated with a specific diagnosis that is being evaluated, monitored, or treated as if it exists) are acceptable and can be coded in the inpatient setting, when documented at the
time of discharge.
Thank you,
Jeanne Clark RN, BSN
CDI Specialist
tiger text
Please use your independent medical judgment in providing your response.
[2024-10-10] MEDS: PHENOBARBITAL IV ×2 (15:48→21:21)
--- NOTE | 2024-10-10 15:59 | PTCARENOTE ---
Addendum entered by Yashira Angel RN 10/10/24 19:08:
Pt knows he is at the hospital but doesn't know why he is here.
Original Note:
Assuemed care of pt at aprox 1300. Pt very lethargic but awakes when asked a question. SR on monitor. NS infusing. Pt does not want to eat any lunch. CC remains on draining yellow urine. MSAS done per protocol.
[2024-10-10] MEDS: LIPITOR PO (19:33)
[2024-10-10] MEDS: LOVENOX 40 MG SC (19:33)
--- NOTE | 2024-10-10 20:03 | PTCARENOTE ---
Pt knows he is at the hospital but doesn't know why he is here.
Original Note:
Assuemed care of pt at aprox 1300. Pt very lethargic but awakes when asked a question. SR on monitor. NS infusing. Pt does not want to eat any lunch. CC remains on draining caitlin urine. MSAS done per protocol.
--- NOTE | 2024-10-10 20:05 | PTCARENOTE ---
Pt knows he is at the hospital but doesn't know why he is here.
Original Note:
Assuemed care of pt at aprox 1300. Pt very lethargic but awakes when asked a question. SR on monitor. NS infusing. Pt does not want to eat any lunch. CC remains on caitlin yellow urine. MSAS done per protocol.
--- NOTE | 2024-10-10 20:35 | PTCARENOTE ---
At aprox 1550 Dr Ferrer made aware of patients continued lethargy through the day, phenobarital held.
--- NOTE | 2024-10-10 21:13 | PTCARENOTE ---
Pt has been sleeping all day. Vitals remain stable. Pt refused to eat anything for lunch or breakfast . He does wake up when spoken to but just wants to sleep. Pt turned and repositioned throughout my shift. CC draining caitlin urine. IVF infusing.
[2024-10-11] VITALS (12 sets, daily range): BP systolic 105–180; BP diastolic 47–72; BMI 22.0
[2024-10-11 06:50] LABS: Blood Urea Nitrogen 9 mg/dl (9-20); Calcium 8.6 mg/dl (8.4-10.2); Carbon Dioxide 17 mmol/L (22-30); Chloride 106 mmol/L (98-107); Estimated Creatinine Clearance 96 ml/min; Glucose 70 mg/dl (70-99); Magnesium 1.8 mg/dl (1.6-2.3); Potassium 3.9 mmol/L (3.5-5.1); Sodium 131 mmol/L (135-145); eGFR > 60.00
--- NOTE | 2024-10-11 07:02 | W.PN.HOSP.TC ---
Today's Communication/Plan
-
See plan
Left upper extremity x-ray due to pain and weakness from left arm pain (history of LUE fracture and surgery) and ortho consult given complex left upper extremity history including prior rotator cuff tear and fracture with surgery
Assessment / Plan
Assessment / Plan
Physical Exam
General: Not in acute distress
HEENT: Normocephalic, Atraumatic
Respiratory: Clear to Auscultation Bilaterally
Cardiac: S1/S2, Regular Rate and Rhythm
GI: Soft, Non Tender, Non Distended and Normal Bowel Sounds
Musculoskeletal: No Cyanosis and No Edema
Skin: Warm. Dry.
Neuro: Intermittently awake.
Psych: Calm
Assessment/Plan
74-year-old male with past medical history of hypertension, hyperlipidemia, anxiety/depression, prior CVA, alcohol use disorder, presenting that he was found down on the ground in his apartment covered in feces. Patient did not seem to remember why
he was on the ground. Was not seen 2 days. Friend called 911 and brought patient for evaluation. Friend and medical proxy at bedside who helps provide history. Patient denied complaints and initially said he wanted to go home. Patient did not
drink alcohol in 3 days was drinking at least 6 beers per day at that time. Patient tachycardic initially. EKG showed sinus rhythm with premature atrial complexes, right bundle branch block which is old. Labs showed mild hyponatremia sodium of 128.
Creatinine kinase of 615. Alcohol level negative. Patient with ambulatory dysfunction/possible fall likely secondary to alcohol use disorder. Mild hyponatremia likely secondary to poor p.o. intake/alcohol use. Patient normally is alert and able to
take care of his ADLs, he is known to be incontinent of urine with frequent UTIs. She reports that patient had similar behaviors when he had last stroke.
#ambulatory dysfunction/possible fall likely secondary to alcohol use disorder.
#acute change in mental status suspected secondary to alcohol use
- Okay to transfer to telemetry
- Continue MSAS protocol with thiamine and folate, alcohol withdrawal protocol, phenobarbital protocol
#hyponatremia likely secondary to poor p.o. intake/alcohol use
- Na 128, improved to 131
- IV fluids given
- Monitor BMP
#Elevated CPK/Mild Non-Traumatic Rhabdomyolysis
-CPK 615 initially --> improved to 354 --> then down to normal after IV fluids
#Left Arm - trouble moving left arm secondary to pain
#History of left humeral shaft fracture and left rotator cuff tear status post left humeral shaft open reduction internal fixation and left open rotator cuff repair in January [address] Hernesto Raines
-Patient reported that his left arm hurts; he can't lift his left arm above his shoulder. No swelling or bruising noted
-Neurovascular checks
-Check X-Ray
-Needs orthopedics consultation since LUE severe weakness (e.g. inability to abduct or flex shoulder) and pain - patient had a prior rotator cuff tear in 2023 -- appreciate orthopedics
#essential hypertension
- continue lisinopril
#hyperlipidemia
- continue atorvastatin
#Hx CVA
- continue clopidogrel
#anxiety/depression
#Hx ETOH dependency
Code status: full code
DVT Prophylaxis: Lovenox sq
Anticipated Discharge: > 48 hours
Subjective/Interval History
-
Date of Service: October 11, 2024
Patient was seen and examined. He denied any symptoms or complaints.
Objective Data
-
Labs:
Laboratory Results
10/11/24
06:04
Sodium 131 L
Potassium 3.9
Chloride 106
Carbon Dioxide 17 L
BUN 9
Creatinine 0.5 L
Glucose 70
Calcium 8.6
Vital Signs:
Vital Signs
Temp Pulse Resp BP Pulse Ox
98.4 F 86 15 168/58 99
10/10/24 23:22 10/11/24 06:00 10/11/24 06:00 10/11/24 06:00 10/11/24 06:00
I&O
10/10/24 10/11/24 10/12/24
06:59 06:59 06:59
Intake Total 2640 / 2740 900 / 900
Output Total 1100 / 1100 400 / 400
Balance 1540 / 1640 500 / 500
[2024-10-11] MEDS: NICODERM TRANSDERMAL 21 MG TRANSDERM (08:22)
[2024-10-11] MEDS: THIAMINE INJECTION 200 MG IV ×2 (08:22→15:14)
[2024-10-11] MEDS: NSS 1000 IV ×2 (08:23→22:24)
[2024-10-11] MEDS: PLAVIX 75 MG PO (08:33)
[2024-10-11] MEDS: FOLVITE 1 MG PO (08:34)
[2024-10-11] MEDS: LOPRESSOR 12.5 MG PO (08:34)
[2024-10-11] MEDS: ZESTRIL 20 MG PO (08:34)
[2024-10-11] MEDS: VITAMIN B-12 1000 MCG PO (08:40)
[2024-10-11] MEDS: LUMINAL 64.8 MG PO ×3 (08:41→22:26)
--- NOTE | 2024-10-11 10:48 | PTCARENOTE ---
Pt awake this AM, very weak, needing help w/ eating breakfast. Took medications. Oriented to self and place, place being 'hospital'. Uncooperative w/ care at times, quickly agitated and dismissive but mostly pleasant and expresses appreciation of
staff. VSS.
[2024-10-11] MEDS: APRESOLINE 5 MG IV (14:32)
--- NOTE | 2024-10-11 14:41 | PTCARENOTE ---
BP elevated 180/69. 5mg IV hydralazine given as ordered. Pt ate well for lunch. More alert and conversant, still confused at times but pleasant and cooperative.
--- NOTE | 2024-10-11 14:46 | CM ---
CM following re: discharge planning.
Reviewed pt's chart, met with pt. Pt is able to have some conversation today.
Pt reports he thinks hi s apartment is gone and he will not have to place to live. Pt confirmed he goes to next door bar to see his friend rashi Moses in a morning to have 3 beers and afternoon to have 3 beers and pt admitted he has been drinking
a lot. Pt stated his 'apartment is a mass'. Pt stated he has a sister and a brother and pt did not say anything regarding his relationship with his siblings.
Pt stated he is very weak and he will need to go to rehab facility and per pt he might live there.
PT and OT will evaluate the pt to determine a level of care at discharge.
D/C plan: preferred and accepted SNF.
CM will follow with discharge plan updates as hospitalization progresses
[2024-10-11] MEDS: LUMINAL PO (15:27)
--- NOTE | 2024-10-11 16:46 | PTCARENOTE ---
report received. pt transferred to Pending sale to [facility]. [id number]. vss. nsr. bed alarm active. call poe in reach. will monitor.
[2024-10-11] MEDS: ATIVAN 1 MG IV ×2 (16:58→19:42)
[2024-10-11] MEDS: NSS IV (17:45)
[2024-10-11] MEDS: LIPITOR PO (17:54)
[2024-10-11] MEDS: LOVENOX SC (17:54)
[2024-10-11] MEDS: NSS (PRESERVATIVE FREE) 1 ML IV (19:42)
[2024-10-11] MEDS: LOPRESSOR PO (20:23)
[2024-10-11] MEDS: VITAMIN B1 PO (20:23)
[2024-10-12 07:22] VITALS: BP 147/55
[2024-10-12 07:42] LABS: Blood Urea Nitrogen 7 mg/dl (9-20); Calcium 8.7 mg/dl (8.4-10.2); Carbon Dioxide 23 mmol/L (22-30); Chloride 106 mmol/L (98-107); Estimated Creatinine Clearance 96 ml/min; Glucose 111 mg/dl (70-99); Magnesium 1.9 mg/dl (1.6-2.3); Sodium 135 mmol/L (135-145); eGFR > 60.00
--- NOTE | 2024-10-12 08:26 | W.PN.UPDATE ---
Update Note
Progress Note Update
Full orthopedic consult to be dictated:
Dx: Open reduction internal fixation left humeral shaft and left open rotator cuff repair January 13, [address] Raines
Plan: Orthopedics request to see patient for left upper extremity weakness. He has undergone open reduction internal fixation left humeral shaft and left open rotator cuff repair by Dr. Raines on January 13, 2024. According to office notes he
was last seen January 2024 with recommendations to start range of motion exercises but he never returned for follow-up as recommended. He was recently readmitted because he was found on his floor then readmitted to the hospital. X-rays of the left
humerus/elbow show plate holding nice reduction of the humerus fracture and callus formation noted. No new acute fractures noted. Tried to evaluate patient this morning but he is obtunded. Apparently last night he was confused and all over the
place so he was medicated. Examination of the left upper extremity shows well-healed surgical incision. No warmth, erythema or pain. Passively I am able to abduct him 35 degrees, externally rotate 30 degrees and internally rotate 20 degrees. No
point tenderness noted throughout the upper extremity. Hand is warm to touch and pulses are palpable. Orthopedics will continue to follow and hopefully evaluate him when he is more alert.
[2024-10-12] MEDS: FOLVITE PO (09:17)
[2024-10-12] MEDS: LOPRESSOR PO (09:18)
[2024-10-12] MEDS: PLAVIX PO (09:19)
[2024-10-12] MEDS: VITAMIN B1 PO (09:19)
[2024-10-12] MEDS: LUMINAL PO (09:19)
[2024-10-12] MEDS: VITAMIN B-12 PO (09:19)
[2024-10-12] MEDS: NICODERM TRANSDERMAL 21 MG TRANSDERM (09:20)
[2024-10-12] MEDS: ZESTRIL PO (09:20)
--- NOTE | 2024-10-12 09:26 | PTCARENOTE ---
Pt unarousable to verbal. Arousable to tactile and sternal rub. Drowsy, lethargic. Unable to take PO meds. Per nightshift report, pt did receive 1mg IV ativan overnight for msas 8 and agitation.
--- NOTE | 2024-10-12 10:17 | PTCARENOTE ---
Pt incontinent of bladder, saturated in bed. Pt washed, new gown and linens. Pt more awake but still drowsy. When asked to roll on his side, pt stated 'No, I'm not doing anything I don't want to do.' Pt turned and washed in bed with assistx2. Pt
agitated, swatting at staff and nursing students. Offered pt breakfast, pt declined and stated he was not hungry. Pt refused PO meds. Only oriented to self. Bed alarm in place. Pt currently resting comfortably in bed. Asleep/drowsy, but arousable to
verbal+tactile.
[2024-10-12] MEDS: LUMINAL 64.8 MG PO ×3 (12:09→22:11)
[2024-10-12 12:30] VITALS: BP 159/71
--- NOTE | 2024-10-12 15:12 | W.PN.HOSP.TC ---
Today's Communication/Plan
-
Continue Alcohol Withdrawal protocol -- high risk withdrawal
Assessment / Plan
Assessment / Plan
Physical Exam
General: Not in acute distress
HEENT: Normocephalic, Atraumatic
Respiratory: Clear to Auscultation Bilaterally
Cardiac: S1/S2, Regular Rate and Rhythm
GI: Soft, Non Tender, Non Distended and Normal Bowel Sounds
Musculoskeletal: No Cyanosis and No Edema
Skin: Warm. Dry.
Neuro: Intermittently awake, response to questions.
Psych: Calm
Assessment/Plan
74-year-old male with past medical history of hypertension, hyperlipidemia, anxiety/depression, prior CVA, alcohol use disorder, presenting that he was found down on the ground in his apartment covered in feces. Patient did not seem to remember why
he was on the ground. Was not seen 2 days. Friend called 911 and brought patient for evaluation. Friend and medical proxy at bedside who helps provide history. Patient denied complaints and initially said he wanted to go home. Patient did not
drink alcohol in 3 days was drinking at least 6 beers per day at that time. Patient tachycardic initially. EKG showed sinus rhythm with premature atrial complexes, right bundle branch block which is old. Labs showed mild hyponatremia sodium of 128.
Creatinine kinase of 615. Alcohol level negative. Patient with ambulatory dysfunction/possible fall likely secondary to alcohol use disorder. Mild hyponatremia likely secondary to poor p.o. intake/alcohol use. Patient normally is alert and able to
take care of his ADLs, he is known to be incontinent of urine with frequent UTIs. She reports that patient had similar behaviors when he had last stroke.
#ambulatory dysfunction/possible fall likely secondary to alcohol use disorder.
#acute change in mental status suspected secondary to alcohol use
- Continue MSAS protocol with thiamine and folate, alcohol withdrawal protocol, phenobarbital protocol
- Continue monitoring on tele
#hyponatremia likely secondary to poor p.o. intake/alcohol use
- Na 128, improved to 135 now
- IV fluids given
- Monitor BMP
#Elevated CPK/Mild Non-Traumatic Rhabdomyolysis
-CPK 615 initially --> improved to 354 --> then down to normal after IV fluids
#Left Arm - trouble moving left arm secondary to pain
#History of left humeral shaft fracture and left rotator cuff tear status post left humeral shaft open reduction internal fixation and left open rotator cuff repair in January [address] Hernesto Raines
-Patient reported that his left arm hurts; he can't lift his left arm above his shoulder. No swelling or bruising noted
-Neurovascular checks
-X-ray (from 10/11/24) noted
-Needs orthopedics consultation since LUE severe weakness (e.g. inability to abduct or flex shoulder) and pain - patient had a prior rotator cuff tear in 2023 -- appreciate orthopedics
#essential hypertension
- continue lisinopril
#hyperlipidemia
- continue atorvastatin
#Hx CVA
- continue clopidogrel
#anxiety/depression
#Hx ETOH dependency
Code status: full code
DVT Prophylaxis: Lovenox sq
Anticipated Discharge: > 48 hours
Subjective/Interval History
-
Date of Service: October 12, 2024
Patient was seen and examined. He denied any symptoms, responded to questions okay.
Objective Data
-
Labs:
Laboratory Results
10/12/24
06:35
Sodium 135
Potassium 4.0
Chloride 106
Carbon Dioxide 23
BUN 7 L
Creatinine 0.6 L
Glucose 111 H
Calcium 8.7
Vital Signs:
Vital Signs
Temp Pulse Resp BP Pulse Ox
98.1 F 89 16 159/71 100
10/12/24 12:30 10/12/24 12:30 10/12/24 12:30 10/12/24 12:30 10/12/24 12:30
I&O
10/11/24 10/12/24 10/13/24
06:59 06:59 06:59
Intake Total 900 / 1140 2880 / 2880
Output Total 400 / 400 200 / 200
Balance 500 / 740 2680 / 2680
[2024-10-12 15:41] VITALS: BP 161/64
[2024-10-12] MEDS: LIPITOR PO (17:55)
[2024-10-12] MEDS: LOVENOX SC (17:56)
[2024-10-12 19:30] VITALS: BP 163/83
[2024-10-12] MEDS: VITAMIN B1 100 MG PO (22:11)
[2024-10-12] MEDS: LOPRESSOR 12.5 MG PO (22:11)
[2024-10-13 00:41] VITALS: BP 147/53
[2024-10-13 03:08] VITALS: BP 160/68
[2024-10-13 07:40] LABS: Blood Urea Nitrogen 6 mg/dl (9-20); Calcium 9.3 mg/dl (8.4-10.2); Carbon Dioxide 25 mmol/L (22-30); Chloride 106 mmol/L (98-107); Estimated Creatinine Clearance 96 ml/min; Glucose 98 mg/dl (70-99); Magnesium 1.9 mg/dl (1.6-2.3); Phosphorus 3.6 mg/dl (2.5-4.5); Potassium 4.4 mmol/L (3.5-5.1); Sodium 136 mmol/L (135-145); eGFR > 60.00
[2024-10-13] MEDS: VITAMIN B-12 PO (08:57)
[2024-10-13] MEDS: ZESTRIL PO (08:57)
[2024-10-13] MEDS: PLAVIX PO (08:57)
[2024-10-13] MEDS: VITAMIN B1 PO (08:57)
[2024-10-13] MEDS: LOPRESSOR PO (08:57)
[2024-10-13] MEDS: FOLVITE PO (08:57)
[2024-10-13] MEDS: NICODERM TRANSDERMAL 21 MG TRANSDERM (09:00)
[2024-10-13 11:08] VITALS: BP 156/59
[2024-10-13] MEDS: LUMINAL 32.4 MG PO ×3 (12:03→23:10)
--- NOTE | 2024-10-13 12:56 | W.PN.UPDATE ---
Update Note
Progress Note Update
attempted eval this AM however pt was unable to be aroused for physical exam.
-no significant reactive discomfort with PROM of the left shoulder
-x-rays do not show any significant acute pathology- if there was a fall, more likely soft tissue injury about the RC suspected which can be folowed on an outpatient f/u
-can attempt to reexamine pt if mental status improves; can consider CT scan to r/o fx but less likely given PROM without reaction
Ortho surg will follow peripherally at this time but can reengage with further concerns.
--- NOTE | 2024-10-13 14:42 | W.PN.HOSP.TC ---
Today's Communication/Plan
-
High risk alcohol withdrawal patient
Complete phenobarb taper
SNF placement pending
Assessment / Plan
Assessment / Plan
Physical Exam
General: Not in acute distress
HEENT: Normocephalic, Atraumatic
Respiratory: Clear to Auscultation Bilaterally
Cardiac: S1/S2, Regular Rate and Rhythm
GI: Soft, Non Tender, Non Distended and Normal Bowel Sounds
Musculoskeletal: No Cyanosis and No Edema
Skin: Warm. Dry.
Neuro: Intermittently awake, response to questions.
Psych: Intermittently agitated
Assessment/Plan
74-year-old male with past medical history of hypertension, hyperlipidemia, anxiety/depression, prior CVA, alcohol use disorder, presenting that he was found down on the ground in his apartment covered in feces. Patient did not seem to remember why
he was on the ground. Was not seen 2 days. Friend called 911 and brought patient for evaluation. Friend and medical proxy at bedside who helps provide history. Patient denied complaints and initially said he wanted to go home. Patient did not
drink alcohol in 3 days was drinking at least 6 beers per day at that time. Patient tachycardic initially. EKG showed sinus rhythm with premature atrial complexes, right bundle branch block which is old. Labs showed mild hyponatremia sodium of 128.
Creatinine kinase of 615. Alcohol level negative. Patient with ambulatory dysfunction/possible fall likely secondary to alcohol use disorder. Mild hyponatremia likely secondary to poor p.o. intake/alcohol use. Patient normally is alert and able to
take care of his ADLs, he is known to be incontinent of urine with frequent UTIs. She reports that patient had similar behaviors when he had last stroke.
#ambulatory dysfunction/possible fall likely secondary to alcohol use disorder.
#acute change in mental status suspected secondary to alcohol use
- Patient is a high risk alcohol withdrawal patient and was previously transferred to IMU given worsening MSAS scores (see update note from October 08, 2024)
- Continue MSAS protocol with thiamine and folate, alcohol withdrawal protocol, phenobarbital protocol
- Complete phenobarb taper
- Continue monitoring on tele
#hyponatremia likely secondary to poor p.o. intake/alcohol use
- Na 128, improved to 136 now
- IV fluids given
- Monitor BMP
#Elevated CPK/Mild Non-Traumatic Rhabdomyolysis
-CPK 615 initially --> improved to 354 --> then down to normal after IV fluids
#Left Arm - trouble moving left arm secondary to pain
#History of left humeral shaft fracture and left rotator cuff tear status post left humeral shaft open reduction internal fixation and left open rotator cuff repair in January [address] Hernesto Raines
-Patient reported that his left arm hurts; he can't lift his left arm above his shoulder. No swelling or bruising noted
-Neurovascular checks
-X-ray (from 10/11/24) noted
-Needs orthopedics consultation since LUE severe weakness (e.g. inability to abduct or flex shoulder) and pain - patient had a prior rotator cuff tear in 2023 -- appreciate orthopedics
#essential hypertension
- continue lisinopril
#hyperlipidemia
- continue atorvastatin
#Hx CVA
- continue clopidogrel
#anxiety/depression
#Hx ETOH dependency
Code status: full code
DVT Prophylaxis: Lovenox sq
Anticipated Discharge: 24 - 48 hours
Subjective/Interval History
-
Date of Service: October 13, 2024
Patient was seen and examined. He was sleeping, was able to be aroused and verbalized a few responses.
Objective Data
-
Labs:
Laboratory Results
10/13/24
06:59
Sodium 136
Potassium 4.4
Chloride 106
Carbon Dioxide 25
BUN 6 L
Creatinine 0.6 L
Glucose 98
Calcium 9.3
Vital Signs:
Vital Signs
Temp Pulse Resp BP Pulse Ox
97.4 F 72 16 156/59 98
10/13/24 03:08 10/13/24 11:08 10/13/24 11:08 10/13/24 11:08 10/13/24 11:08
I&O
10/12/24 10/13/24 10/14/24
06:59 06:59 06:59
Intake Total 2880 / 2880
Output Total 200 / 200
Balance 2680 / 2680
[2024-10-13 15:07] VITALS: BP 145/59
--- NOTE | 2024-10-13 15:22 | PN.CDI ---
CDI
- -
CDI:
Physician Documentation Request
Admit Date: 10/08/24 20:07
Dear Doctor Nabil,
Patient presented to ED with concerns for altered mental status. Found on floor of his apartment.
H&P states patient has a history of etoh dependency.
10/08 PANELBOARD OPERATOR note states 'pt msas scores progressively getting worse now >8 warranting transfer to IMU for closer monitoring.'
Patine on Phenobarbital taper.
Progress notes state 'ambulatory dysfunction/possible fall likely secondary to alcohol use disorder.acute change in mental status suspected secondary to alcohol use. hyponatremia likely secondary to poor p.o. intake/alcohol use'
Patient noted by nursing to be drowsy and lethargic
Please provide further specificity as outlined below:
1. Please specify /clarify the pattern of use, include all that apply:
- Use, with or without abuse and/or dependence
- Abuse with or without dependence
- Dependence
2. Please identify any associated manifestations
- Intoxication: with or without delirium, with or without perceptual disturbance
- Withdrawal
- Other, please specify
- No manifestations
Use of terms such as suspected, likely, concern for, or probable (associated with a specific diagnosis that is being evaluated, monitored, or treated as if it exists) are acceptable and can be coded in the inpatient setting, when documented at the
time of discharge.
Thank you,
Jeanne Clark RN, BSN
CDI Specialist
tiger text
Please use your independent medical judgment in providing your response.
--- NOTE | 2024-10-13 15:30 | PN.CDI ---
CDI
- -
CDI:
Physician Documentation Request
Admit Date: 10/08/24 20:07
Dear Doctor Nabil,
Patient presented to ED with concerns for altered mental status. Found on floor covered in feces. Patient himself did not know why he was laying on the ground.
Progress notes state 'acute change in mental status suspected secondary to alcohol use'
10/12 patient noted to be unarousable to verbal. Arousable to tactile and sternal rub , drowsy , lethargic by nursing.
If possible, could you please further specify the altered mental status.
Encephalopathy - indicate type, such as metabolic, toxic, septic, alcoholic, anoxic, hypertensive etc. due to a specific condition such as UTI, CVA, hyponatremia etc.
Acute Delirium - indicate known or suspected etiology such as postoperative, due to opioids or other drugs etc. Can also indicate unknown or mixed etiologies.
Other
Use of terms such as suspected, likely, concern for, or probable (associated with a specific diagnosis that is being evaluated, monitored, or treated as if it exists) are acceptable and can be coded in the inpatient setting, when documented at the
time of discharge.
Thank you,
Jeanne Clark RN, BSN
CDI Specialist
tiger text
Please use your independent medical judgment in providing your response.
--- NOTE | 2024-10-13 16:18 | CM ---
Spoke with attending, PT/OT to see to determine if patient needs SNF.
Plan: Case management will continue to follow and assist with discharge planning. SNF vrs. Home.
[2024-10-13] MEDS: LIPITOR 40 MG PO (17:38)
[2024-10-13] MEDS: LOVENOX 40 MG SC (17:38)
[2024-10-13 19:17] VITALS: BP 144/59
[2024-10-13] MEDS: LOPRESSOR 12.5 MG PO (20:07)
[2024-10-13] MEDS: VITAMIN B1 100 MG PO (20:11)
[2024-10-13 23:09] VITALS: BP 145/58
[2024-10-14] VITALS (7 sets, daily range): BP systolic 90–156; BP diastolic 51–68; PULSE 92; O2SAT 93
[2024-10-14] MEDS: NICODERM TRANSDERMAL 21 MG TRANSDERM (07:54)
[2024-10-14 07:56] LABS: Hematocrit 34.7 % (39.0-52.0); Hemoglobin 12.3 g/dL (13.0-18.0); Mean Corp Hgb Conc. 35.4 g/dL (33.0-37.0); Mean Corpuscular Hgb 32.8 pg (27.0-31.0); Mean Corpuscular Volume 92.5 fL (80.0-94.0); Mean Platelet Volume 9.6 fL (7.4-10.4); Platelet Count 200 10^3/uL (130-400); Red Blood Cell Count 3.75 10^6/uL (4.70-6.10); Red Cell Dist. Width 13.2 % (11.5-14.5); White Blood Cell Count 4.9 10^3/uL (4.8-10.8)
[2024-10-14] MEDS: LUMINAL 32.4 MG PO ×3 (07:56→22:00)
[2024-10-14] MEDS: VITAMIN B1 100 MG PO ×2 (07:56→21:59)
[2024-10-14] MEDS: PLAVIX 75 MG PO (07:56)
[2024-10-14] MEDS: LOPRESSOR 12.5 MG PO ×2 (07:56→22:00)
[2024-10-14] MEDS: ZESTRIL 20 MG PO (07:58)
[2024-10-14] MEDS: VITAMIN B-12 1000 MCG PO (07:59)
[2024-10-14] MEDS: FOLVITE 1 MG PO (07:59)
[2024-10-14 08:24] LABS: Blood Urea Nitrogen 9 mg/dl (9-20); Carbon Dioxide 23 mmol/L (22-30); Chloride 103 mmol/L (98-107); Estimated Creatinine Clearance 96 ml/min; Glucose 97 mg/dl (70-99); Magnesium 1.9 mg/dl (1.6-2.3); Potassium 3.4 mmol/L (3.5-5.1); Sodium 134 mmol/L (135-145); eGFR > 60.00
--- NOTE | 2024-10-14 11:54 | W.PN.HOSP.TC ---
Today's Communication/Plan
-
see A/P
Assessment / Plan
Assessment / Plan
74-year-old male with past medical history of hypertension, hyperlipidemia, anxiety/depression, prior CVA, alcohol use disorder, was found down on the ground in his apartment covered in feces. Patient did not seem to remember why he was on the
ground. Was not seen for 2 days. Friend called 911 and brought patient for evaluation. Friend and medical proxy at bedside who helps provide history. Patient denied complaints and initially said he wanted to go home. Patient did not drink alcohol
in 3 days, was drinking at least 6 beers per day at that time.
Patient tachycardic initially. EKG showed sinus rhythm with premature atrial complexes, right bundle branch block which is old. Labs showed mild hyponatremia sodium of 128. Creatinine kinase of 615. Alcohol level negative. Patient with ambulatory
dysfunction/possible fall likely secondary to alcohol use disorder. Mild hyponatremia likely secondary to poor p.o. intake/alcohol use. Patient normally is alert and able to take care of his ADLs, he is known to be incontinent of urine with frequent
UTIs.
Assessment/Plan
# ambulatory dysfunction/possible fall likely secondary to alcohol use disorder.
# acute metabolic encephalopathy suspect secondary to alcohol withdrawal
CT head: No acute intracranial abnormality noted.
Continue MSAS protocol with thiamine and folate
Continue phenobarb taper
Continue monitoring on tele
# hyponatremia likely secondary to poor p.o. intake/alcohol use,
Sodium level improving
# hypokalemia
replete
# Elevated CPK
# Mild Non-Traumatic Rhabdomyolysis
CPK 615 initially, improved to 354, then down to normal after IV fluids
# trouble moving left arm secondary to pain
# History of left humeral shaft fracture and left rotator cuff tear status post left humeral shaft open reduction internal fixation and left open rotator cuff repair in January [address] Hernesto Raines
X-ray without acute fracture
orthopedics was consulted
# essential hypertension
continue lisinopril
# hyperlipidemia
continue atorvastatin
# Hx CVA
continue clopidogrel
# anxiety/depression
# Hx ETOH dependency
Code status: full code
DVT Prophylaxis: Lovenox sq
Dispo: SNF per PT OT recc
Anticipated Discharge: 24 - 48 hours
Subjective/Interval History
-
Date of Service: October 14, 2024
Objective Data
-
Labs:
Laboratory Results
10/14/24
07:35
WBC 4.9
Hgb 12.3 L
Hct 34.7 L
Plt Count 200
Sodium 134 L
Potassium 3.4 L
Chloride 103
Carbon Dioxide 23
BUN 9
Creatinine 0.6 L
Glucose 97
Calcium 9.0
Vital Signs:
Vital Signs
Temp Pulse Resp BP Pulse Ox
36.6 C 88 16 154/59 98
10/14/24 11:20 10/14/24 11:20 10/14/24 11:20 10/14/24 11:20 10/14/24 11:20
I&O
10/13/24 10/14/24 10/15/24
06:59 06:59 06:59
Intake Total 420 / 420
Output Total 200 / 200
Balance 220 / 220
Review of Systems
-
History Source: Patient
All other systems: Reviewed and negative
Physical Exam
-
General: Well Developed, Well Nourished, No Apparent Distress, Comfortable and Conversant; Negative Respiratory Distress
HEENT: Normocephalic, Atraumatic, Nose Appears Normal and Ears Appear Normal; Negative Oxygen
Respiratory: Clear to Auscultation and Non Labored Respirations; Negative Accessory Resp Muscle Use
Cardiac: Regular Rhythm and S1/S2
GI: Soft, Nontender, Nondistended and Normal Bowel Sounds
Skin: Warm and Dry
Neuro: Awake and Alert
Psych: Calm; Negative Intact Judgement/Insight
Data Reviewed
-
Labs: Labs Reviewed by me
--- NOTE | 2024-10-14 12:36 | PTCARENOTE ---
pt spit out PO potassium despite education and redirection,. attending notified
[2024-10-14] MEDS: KCL 270 MEQ IV (13:22)
[2024-10-14] MEDS: LOVENOX 40 MG SC (17:46)
[2024-10-14] MEDS: LIPITOR 40 MG PO (17:46)
[2024-10-15 03:18] VITALS: BP 138/41
[2024-10-15 07:25] VITALS: BP 94/57
[2024-10-15 08:24] VITALS: BP 120/58
[2024-10-15] MEDS: NICODERM TRANSDERMAL 21 MG TRANSDERM (08:25)
[2024-10-15] MEDS: PLAVIX 75 MG PO (08:26)
[2024-10-15] MEDS: VITAMIN B-12 1000 MCG PO (08:26)
[2024-10-15] MEDS: FOLVITE 1 MG PO (08:26)
[2024-10-15] MEDS: VITAMIN B1 100 MG PO (08:26)
[2024-10-15] MEDS: ZESTRIL 20 MG PO (08:26)
[2024-10-15] MEDS: LOPRESSOR 12.5 MG PO (08:26)
--- NOTE | 2024-10-15 09:49 | W.PN.HOSP.TC ---
Today's Communication/Plan
-
see A/P
Assessment / Plan
Assessment / Plan
74-year-old male with past medical history of hypertension, hyperlipidemia, anxiety/depression, prior CVA, alcohol use disorder, was found down on the ground in his apartment covered in feces. Patient did not seem to remember why he was on the
ground. Was not seen for 2 days. Friend called 911 and brought patient for evaluation. Friend and medical proxy at bedside who helps provide history. Patient denied complaints and initially said he wanted to go home. Patient did not drink alcohol
in 3 days, was drinking at least 6 beers per day at that time.
Patient tachycardic initially. EKG showed sinus rhythm with premature atrial complexes, right bundle branch block which is old. Labs showed mild hyponatremia sodium of 128. Creatinine kinase of 615. Alcohol level negative. Patient with ambulatory
dysfunction/possible fall likely secondary to alcohol use disorder. Mild hyponatremia likely secondary to poor p.o. intake/alcohol use. Patient normally is alert and able to take care of his ADLs, he is known to be incontinent of urine with frequent
UTIs.
Assessment/Plan
# ambulatory dysfunction/possible fall likely secondary to alcohol use disorder.
# acute metabolic encephalopathy suspect secondary to alcohol withdrawal
CT head: No acute intracranial abnormality noted.
Continue MSAS protocol with thiamine and folate
Continue phenobarb taper
Continue monitoring on tele
Check MRI brain for persistent drowsiness/confusion
Check UA reflex urine Cx
# hyponatremia likely secondary to poor p.o. intake/alcohol use
Sodium level improving
Follow sodium level
# hypokalemia
repleted
# Elevated CPK
# Mild Non-Traumatic Rhabdomyolysis
CPK 615 initially, improved to 354, then down to normal after IV fluids
# trouble moving left arm secondary to pain
# History of left humeral shaft fracture and left rotator cuff tear status post left humeral shaft open reduction internal fixation and left open rotator cuff repair in January [address] Hernesto Ritting
X-ray without acute fracture
orthopedics was consulted
# essential hypertension
continue lisinopril
# hyperlipidemia
continue atorvastatin
# Hx CVA
continue clopidogrel
# anxiety/depression
# Hx ETOH dependency
Code status: full code
DVT Prophylaxis: Lovenox sq
Dispo: SNF per PT OT recc
DW RN
total time 51 min
Anticipated Discharge: > 48 hours
Subjective/Interval History
-
Date of Service: October 15, 2024
Objective Data
-
Labs:
Laboratory Results
10/15/24
06:00
Sodium Pending
Potassium Pending
Chloride Pending
Carbon Dioxide Pending
BUN Pending
Creatinine Pending
Glucose Pending
Calcium Pending
Vital Signs:
Vital Signs
Temp Pulse Resp BP Pulse Ox
36.3 C 67 16 120/58 99
10/15/24 07:25 10/15/24 07:25 10/15/24 07:25 10/15/24 08:26 10/15/24 07:25
I&O
10/14/24 10/15/24 10/16/24
06:59 06:59 06:59
Intake Total 420 / 420 240 / 240
Output Total 200 / 200 575 / 575
Balance 220 / 220 -335 / -335
Review of Systems
-
Unable to obtain full review of systems at this time due to: Acuity
Physical Exam
-
General: Well Developed, Well Nourished, No Apparent Distress and Comfortable; Negative Respiratory Distress
HEENT: Normocephalic, Atraumatic, Nose Appears Normal and Ears Appear Normal; Negative Oxygen
Respiratory: Clear to Auscultation and Non Labored Respirations; Negative Accessory Resp Muscle Use
Cardiac: Regular Rhythm and S1/S2
GI: Soft, Nontender, Nondistended and Normal Bowel Sounds
Skin: Warm and Dry
Neuro: Awake and Alert
Psych: Calm; Negative Intact Judgement/Insight
Data Reviewed
-
CT Scan: Report Reviewed by me
Labs: Labs Reviewed by me
[2024-10-15 12:49] LABS: Blood Urea Nitrogen 10 mg/dl (9-20); Calcium 9.1 mg/dl (8.4-10.2); Carbon Dioxide 27 mmol/L (22-30); Chloride 106 mmol/L (98-107); Estimated Creatinine Clearance 82 ml/min; Glucose 98 mg/dl (70-99); Potassium 4.3 mmol/L (3.5-5.1); Sodium 136 mmol/L (135-145); eGFR > 60.00
[2024-10-15 15:35] VITALS: BP 114/51
[2024-10-15 16:32] LABS: Urine Albumin 1+ (Neg - Trace); Urine Bilirubin Negative (Negative); Urine Character Slightly Cloudy (Clear); Urine Color Amber; Urine Glucose Negative (Negative); Urine Ketone Negative (Negative); Urine Leukocyte 3+ (Negative); Urine Nitrite Negative (Negative); Urine Occult Blood 1+ (Negative); Urine Urobilinogen 1+ (Neg - 1+); Urine pH 6.5 (5.0-9.0)
[2024-10-15 16:57] LABS: Urine Bacteria Many (Negative); Urine White Cell >100 /HPF (0-5)
[2024-10-15] MEDS: LIPITOR 40 MG PO (17:28)
[2024-10-15] MEDS: LOVENOX 40 MG SC (17:28)
--- NOTE | 2024-10-15 21:39 | PTCARENOTE ---
Addendum entered by Sandra Burks RN 10/15/24 21:45:
When asked where pt is he responded '[place] the boat'. Pt not willing to answer any other questions.
Original Note:
Pt was throwing food off dinner tray at wall and staff. Tray, table, and phone removed from pt's reach. Pt attempting to hit and kick staff while repositioning him and taking things out of his hands. Unable to administer HS meds, MICHELLE notified. Pt
calm with nothing around him and no staff near him. Plan of care ongoing.
[2024-10-15] MEDS: LOPRESSOR PO (21:49)
[2024-10-15] MEDS: VITAMIN B1 PO (21:49)
[2024-10-15 23:02] VITALS: BP 139/55
[2024-10-16 07:05] VITALS: BP 108/57
[2024-10-16] MEDS: VITAMIN B1 100 MG PO ×2 (08:39→20:21)
[2024-10-16] MEDS: VITAMIN B-12 1000 MCG PO (08:39)
[2024-10-16] MEDS: PLAVIX 75 MG PO (08:39)
[2024-10-16] MEDS: FOLVITE 1 MG PO (08:39)
[2024-10-16] MEDS: ZESTRIL 20 MG PO (08:44)
[2024-10-16] MEDS: LOPRESSOR 12.5 MG PO ×2 (08:45→20:21)
[2024-10-16] MEDS: NICODERM TRANSDERMAL 21 MG TRANSDERM (08:45)
[2024-10-16] MEDS: STERILE WATER FOR INJECTION 10 ML IV (08:54)
[2024-10-16] MEDS: ROCEPHIN 1000 MG IV (08:54)
--- NOTE | 2024-10-16 10:09 | PN.CDI ---
CDI
- -
CDI:
Physician Documentation Request
Admit Date: 10/08/24 20:07
Dear Doctor Sheryl,
Patient presented for altered mental status.
urine culture + for Aerococcus species.
10/08 UA
Laboratory Tests
10/08/24
15:01
Urine Color Yellow
Urine Clarity Slightly cloudy
Ur Occult Blood Reflex 2+ A
Urine Nitrite (Reflex) Negative
Leukocyte Esterase Rfl 2+ A
Urine WBC (Reflex) 21-25 A
Urine Bacteria (Reflex) Few A
Could you provide a diagnosis that supports the above lab abnormalities and additional evaluation, monitoring and/or treatment rendered:
UTI
Asymptomatic bacteruria
Other
Use of terms such as suspected, likely, concern for, or probable (associated with a specific diagnosis that is being evaluated, monitored, or treated as if it exists) are acceptable and can be coded in the inpatient setting, when documented at the
time of discharge.
Thank you,
Jeanne Clark RN, BSN
CDI Specialist
tiger text
Please use your independent medical judgment in providing your response.
--- NOTE | 2024-10-16 10:46 | W.PN.HOSP.TC ---
Addendum entered and electronically signed by Arely Saucedo MD 10/16/24 14:28:
# possible UTI
Original Note:
Today's Communication/Plan
-
follow urine cx
dispo planning
Assessment / Plan
Assessment / Plan
74-year-old male with past medical history of hypertension, hyperlipidemia, anxiety/depression, prior CVA, alcohol use disorder, was found down on the ground in his apartment covered in feces. Patient did not seem to remember why he was on the
ground. Was not seen for 2 days. Friend called 911 and brought patient for evaluation. Friend and medical proxy at bedside who helps provide history. Patient denied complaints and initially said he wanted to go home. Patient did not drink alcohol
in 3 days, was drinking at least 6 beers per day at that time.
Patient tachycardic initially. EKG showed sinus rhythm with premature atrial complexes, right bundle branch block which is old. Labs showed mild hyponatremia sodium of 128. Creatinine kinase of 615. Alcohol level negative. Patient with ambulatory
dysfunction/possible fall likely secondary to alcohol use disorder. Mild hyponatremia likely secondary to poor p.o. intake/alcohol use. Patient normally is alert and able to take care of his ADLs, he is known to be incontinent of urine with frequent
UTIs.
Assessment/Plan
# ambulatory dysfunction/possible fall likely secondary to alcohol use disorder.
# acute metabolic encephalopathy suspect secondary to alcohol withdrawal
CT head: No acute intracranial abnormality noted.
Continue MSAS protocol with thiamine and folate
Completed phenobarb taper
Mental status improved today, pt is awake/conversant, follows command and able to move all 4 extremities; but not orientated with poor insight likely chronic 2/2 alcohol abuse
No need to check MRI brain anymore
Follow urine culture
started empiric Ceftriaxone
# hyponatremia likely secondary to poor p.o. intake/alcohol use, resolved
# hypokalemia
repleted
# Elevated CPK
# Mild Non-Traumatic Rhabdomyolysis
CPK 615 initially, improved to 354, then down to normal after IV fluids
# trouble moving left arm secondary to pain
# History of left humeral shaft fracture and left rotator cuff tear status post left humeral shaft open reduction internal fixation and left open rotator cuff repair in January [address] Hernesto Raines
X-ray without acute fracture
orthopedics was consulted
# essential hypertension
continue lisinopril
# hyperlipidemia
continue atorvastatin
# Hx CVA
continue clopidogrel
# anxiety/depression
# Hx ETOH dependency
Code status: full code
DVT Prophylaxis: Lovenox sq
Dispo: SNF per PT OT recc
Anticipated Discharge: Within 24 hours
Subjective/Interval History
-
Date of Service: October 16, 2024
Objective Data
-
Labs:
Laboratory Results
10/16/24
06:59
Sodium Pending
Potassium Pending
Chloride Pending
Carbon Dioxide Pending
BUN Pending
Creatinine Pending
Glucose Pending
Calcium Pending
Vital Signs:
Vital Signs
Temp Pulse Resp BP Pulse Ox
36.3 C 61 18 147/55 99
10/16/24 07:05 10/16/24 08:44 10/16/24 07:05 10/16/24 08:44 10/16/24 09:28
I&O
10/15/24 10/16/24 10/17/24
06:59 06:59 06:59
Intake Total 240 / 240 240 / 240
Output Total 575 / 575 550 / 550
Balance -335 / -335 -310 / -310
Review of Systems
-
History Source: Patient
All other systems: Reviewed and negative
Physical Exam
-
General: Well Developed, Well Nourished, No Apparent Distress, Comfortable and Conversant; Negative Respiratory Distress
HEENT: Normocephalic, Atraumatic, Nose Appears Normal and Ears Appear Normal; Negative Oxygen
Respiratory: Clear to Auscultation and Non Labored Respirations; Negative Accessory Resp Muscle Use
Cardiac: Regular Rhythm and S1/S2
GI: Soft, Nontender, Nondistended and Normal Bowel Sounds
Skin: Warm and Dry
Neuro: Awake and Alert
Psych: Calm; Negative Intact Judgement/Insight
Data Reviewed
-
CT Scan: Report Reviewed by me
Labs: Labs Reviewed by me
[2024-10-16 11:00] LABS: Blood Urea Nitrogen 12 mg/dl (9-20); Calcium 8.8 mg/dl (8.4-10.2); Carbon Dioxide 23 mmol/L (22-30); Chloride 104 mmol/L (98-107); Estimated Creatinine Clearance 82 ml/min; Glucose 87 mg/dl (70-99); Potassium 3.7 mmol/L (3.5-5.1); Sodium 135 mmol/L (135-145); eGFR > 60.00
--- NOTE | 2024-10-16 11:31 | CM ---
Spoke with attending who stated that patient will most likely be ready for discharge tomorrow. Placed a call to patient's contact Josué. Advised him of the indication for SNF. Josué stated that he would like to determine bed availability at all local,
[place] facilities so that he remains close to home. Will send referrals out to, [facility], [facility], [facility], and [facility]. Will call patient's, friend to update as to which referrals can accept.
Plan: Case management will continue to follow and assist with discharge planning. SNF when stable. No auth will be needed for transfer.
[2024-10-16 13:00] VITALS: BP 145/53; PULSE 70; O2SAT 99
[2024-10-16 15:10] VITALS: BP 103/72
[2024-10-16] MEDS: LIPITOR 40 MG PO (17:17)
[2024-10-16] MEDS: LOVENOX 40 MG SC (17:17)
--- NOTE | 2024-10-16 20:01 | PTCARENOTE ---
Per dayshift RN report, pt was pleasant during the daytime with no behavior issues, but had a previous episode of throwing tray the prior night. Upon change of shift assessment, pt attempting to remove condom catheter and stating he needed to get
OOB. Pt repositioned and attempted to reorient. Bed alarm activated and pt noted to be sitting at side of bed. Difficult to redirect and attempting to get OOB. Pt was able to stand, very unsteady, despite explaining that he was still connected
to condom cath. This
RN called for assistance and was able to get patient back in bed. Pt continues to be difficult to redirect and continues to attempt to get OOB and remove condom cath. WIL[employer]AND FI[employer]FIGH[employer] Zandra notified and requested PRNs. Per dayshift RN, MSAS has been
discontinued since 10/14 and no longer on telemetry. MSAS done, per [employer] FI[employer] request and pt with score of 5 with HR of 87 and agitated/disoriented. Per WIL[employer]AND FIREFIGHTER, continue to MSAS and use PRNs as needed. Restraints added.
[2024-10-16] MEDS: ATIVAN 1 MG PO (20:21)
[2024-10-16 23:55] VITALS: BP 152/60
[2024-10-17 07:25] VITALS: BP 163/75
[2024-10-17] MEDS: NICODERM TRANSDERMAL 21 MG TRANSDERM (09:01)
[2024-10-17] MEDS: ZESTRIL 20 MG PO (09:02)
[2024-10-17] MEDS: VITAMIN B1 100 MG PO ×2 (09:02→20:52)
[2024-10-17] MEDS: VITAMIN B-12 1000 MCG PO (09:03)
[2024-10-17] MEDS: LOPRESSOR 12.5 MG PO ×2 (09:03→20:52)
[2024-10-17] MEDS: PLAVIX 75 MG PO (09:03)
[2024-10-17] MEDS: FOLVITE 1 MG PO (09:03)
[2024-10-17] MEDS: ROCEPHIN 1000 MG IV (09:03)
[2024-10-17] MEDS: STERILE WATER FOR INJECTION 10 ML IV (09:04)
[2024-10-17 09:35] LABS: Blood Urea Nitrogen 11 mg/dl (9-20); Calcium 8.9 mg/dl (8.4-10.2); Carbon Dioxide 25 mmol/L (22-30); Chloride 104 mmol/L (98-107); Estimated Creatinine Clearance 96 ml/min; Glucose 92 mg/dl (70-99); Potassium 3.8 mmol/L (3.5-5.1); Sodium 135 mmol/L (135-145); eGFR > 60.00
--- NOTE | 2024-10-17 11:45 | W.PN.HOSP.TC ---
Today's Communication/Plan
-
see A/P
Discharge planning to SNF
Assessment / Plan
Assessment / Plan
74-year-old male with past medical history of hypertension, hyperlipidemia, anxiety/depression, prior CVA, alcohol use disorder, was found down on the ground in his apartment covered in feces. Patient did not seem to remember why he was on the
ground. Was not seen for 2 days. Friend called 911 and brought patient for evaluation. Friend and medical proxy at bedside who helps provide history. Patient denied complaints and initially said he wanted to go home. Patient did not drink alcohol
in 3 days, was drinking at least 6 beers per day at that time.
Patient tachycardic initially. EKG showed sinus rhythm with premature atrial complexes, right bundle branch block which is old. Labs showed mild hyponatremia sodium of 128. Creatinine kinase of 615. Alcohol level negative. Patient with ambulatory
dysfunction/possible fall likely secondary to alcohol use disorder. Mild hyponatremia likely secondary to poor p.o. intake/alcohol use. Patient normally is alert and able to take care of his ADLs, he is known to be incontinent of urine with frequent
UTIs.
Assessment/Plan
# ambulatory dysfunction/possible fall likely secondary to alcohol use disorder.
# acute metabolic encephalopathy suspect secondary to alcohol withdrawal
CT head: No acute intracranial abnormality noted.
Continue MSAS protocol with thiamine and folate
Completed phenobarb taper
Mental status improved, pt is awake/conversant, follows command and able to move all 4 extremities; but not orientated with poor insight likely chronic 2/2 alcohol abuse
No need to check MRI brain anymore
repeat urine culture mixed hernan, stop further empiric Ceftriaxone
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
# hyponatremia likely secondary to poor p.o. intake/alcohol use, resolved
# hypokalemia
repleted
# Mild Non-Traumatic Rhabdomyolysis, resolved
# History of left humeral shaft fracture and left rotator cuff tear status post left humeral shaft open reduction internal fixation and left open rotator cuff repair in January [address] Hernesto Raines
X-ray without acute fracture
orthopedics was consulted
# essential hypertension
continue lisinopril
# hyperlipidemia
continue atorvastatin
# Hx CVA
continue clopidogrel
# anxiety/depression
# Hx ETOH dependency
Code status: full code
DVT Prophylaxis: Lovenox sq
Dispo: SNF per PT OT recc
DW RN
DW CM
Anticipated Discharge: Within 24 hours
Subjective/Interval History
-
Date of Service: October 17, 2024
Objective Data
-
Labs:
Laboratory Results
10/17/24
06:43
Sodium 135
Potassium 3.8
Chloride 104
Carbon Dioxide 25
BUN 11
Creatinine 0.6 L
Glucose 92
Calcium 8.9
Vital Signs:
Vital Signs
Temp Pulse Resp BP Pulse Ox
36.7 C 88 16 163/75 99
10/17/24 07:25 10/17/24 09:03 10/17/24 07:25 10/17/24 09:03 10/17/24 07:25
I&O
10/16/24 10/17/24 10/18/24
06:59 06:59 06:59
Intake Total 240 / 240 420 / 420
Output Total 550 / 550 475 / 475
Balance -310 / -310 -55 / -55
Review of Systems
-
Unable to obtain full review of systems at this time due to: Dementia
History Source: Patient
Physical Exam
-
General: Well Developed, Well Nourished, No Apparent Distress, Comfortable, Conversant and Appears Chronically Ill; Negative Respiratory Distress
HEENT: Normocephalic, Atraumatic, Nose Appears Normal and Ears Appear Normal; Negative Oxygen
Respiratory: Clear to Auscultation and Non Labored Respirations; Negative Accessory Resp Muscle Use
Cardiac: Regular Rhythm and S1/S2
GI: Soft, Nontender, Nondistended and Normal Bowel Sounds
Skin: Warm and Dry
Neuro: Awake and Alert
Psych: Calm; Negative Intact Judgement/Insight
Data Reviewed
-
CT Scan: Report Reviewed by me
Labs: Labs Reviewed by me
[2024-10-17 12:46] VITALS: BP 99/63
--- NOTE | 2024-10-17 12:46 | CM ---
Spoke with attending who stated that patient is medically stable for discharge. Spoke with Lakisha who stated that there may be a bed at [facility], however due to recent behaviors they would have to wait to admit when he is calm and cooperative
for two days.
Placed a call to [facility] and left message for Sadia in admissions and placed a call to [facility] and left message for Sadia in admissions, to determine if either one of these facilities would be able to offer bed. Will await return calls.
Plan: Case management will continue to follow and assist with discharge planning.
[2024-10-17 15:15] VITALS: BP 133/58
--- NOTE | 2024-10-17 18:00 | PTCARENOTE ---
Assumed care of pt from previous nurses. Pt agitated and oob x's one, able to be redirected and placed back in bed, bed alarm in place. Pt call poe is within reach, pt does not ring gianni., bed alarm in place, rounding in place. will cont to monitor.
[2024-10-17] MEDS: LIPITOR 40 MG PO (18:22)
[2024-10-17] MEDS: LOVENOX SC ×2 (18:22→18:24)
[2024-10-17 23:08] VITALS: BP 119/52
--- NOTE | 2024-10-18 04:22 | DOWNTIME ---
There was a [employer] Downtime on 10/18/2024 from 0100 to 10/19/2023 at 0420 . Downtime documentation of patient's care, including medication administrations, has been reconciled in the electronic record per guidelines. Refer to the
patient's paper chart under the miscellaneous tab to see printed paper medication records and downtime forms.
[2024-10-18 08:00] LABS: Blood Urea Nitrogen 12 mg/dl (9-20); Carbon Dioxide 27 mmol/L (22-30); Chloride 102 mmol/L (98-107); Estimated Creatinine Clearance 82 ml/min; Glucose 94 mg/dl (70-99); Potassium 4.2 mmol/L (3.5-5.1); Sodium 135 mmol/L (135-145); eGFR > 60.00
[2024-10-18 10:00] VITALS: BP 157/58
[2024-10-18] MEDS: FOLVITE 1 MG PO (10:01)
[2024-10-18] MEDS: ZESTRIL 20 MG PO (10:02)
[2024-10-18] MEDS: VITAMIN B-12 1000 MCG PO (10:02)
[2024-10-18] MEDS: NICODERM TRANSDERMAL 21 MG TRANSDERM (10:02)
[2024-10-18] MEDS: PLAVIX 75 MG PO (10:02)
[2024-10-18] MEDS: LOPRESSOR 12.5 MG PO ×2 (10:02→20:36)
[2024-10-18] MEDS: VITAMIN B1 100 MG PO ×2 (10:02→20:36)
--- NOTE | 2024-10-18 10:15 | PTCARENOTE ---
Patient at times uncooperative with care. Initially refused vital signs this AM. Attempted to get OOB without assist setting off bed alarm. Took a long time to redirect patient back into bed. Bed Alarm active. Disoriented to place, time and
situation at this time. MSAS 4.
--- NOTE | 2024-10-18 10:46 | W.PN.HOSP.TC ---
Addendum entered and electronically signed by Arely Saucedo MD 10/18/24 14:16:
total DC time 36 min
Original Note:
Today's Communication/Plan
-
DC planning
Assessment / Plan
Assessment / Plan
74-year-old male with past medical history of hypertension, hyperlipidemia, anxiety/depression, prior CVA, alcohol use disorder, was found down on the ground in his apartment covered in feces. Patient did not seem to remember why he was on the
ground. Was not seen for 2 days. Friend called 911 and brought patient for evaluation. Friend and medical proxy at bedside who helps provide history. Patient denied complaints and initially said he wanted to go home. Patient did not drink alcohol
in 3 days, was drinking at least 6 beers per day at that time.
Patient tachycardic initially. EKG showed sinus rhythm with premature atrial complexes, right bundle branch block which is old. Labs showed mild hyponatremia sodium of 128. Creatinine kinase of 615. Alcohol level negative. Patient with ambulatory
dysfunction/possible fall likely secondary to alcohol use disorder. Mild hyponatremia likely secondary to poor p.o. intake/alcohol use. Patient normally is alert and able to take care of his ADLs, he is known to be incontinent of urine with frequent
UTIs.
Assessment/Plan
# ambulatory dysfunction/possible fall likely secondary to alcohol use disorder.
# acute metabolic encephalopathy suspect secondary to alcohol withdrawal
CT head: No acute intracranial abnormality noted.
Continue MSAS protocol with thiamine and folate
Completed phenobarb taper
Mental status improved, pt is awake/conversant, follows command and able to move all 4 extremities; but not orientated with poor insight likely 2/2 chronic alcohol abuse
No need to check MRI brain anymore
repeat urine culture mixed hernan, stop further empiric Ceftriaxone
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
# hyponatremia likely secondary to poor p.o. intake/alcohol use, resolved
# hypokalemia
repleted
# Mild Non-Traumatic Rhabdomyolysis, resolved
# History of left humeral shaft fracture and left rotator cuff tear status post left humeral shaft open reduction internal fixation and left open rotator cuff repair in January [address] Hernesto Raines
X-ray without acute fracture
orthopedics was consulted
# essential hypertension
continue lisinopril
# hyperlipidemia
continue atorvastatin
# Hx CVA
continue clopidogrel
# anxiety/depression
# Hx ETOH dependency
Code status: full code
DVT Prophylaxis: Lovenox sq
Dispo: SNF per PT OT recc
DW CM
Anticipated Discharge: Today
Subjective/Interval History
-
Date of Service: October 18, 2024
Objective Data
-
Labs:
Laboratory Results
10/18/24
07:05
Sodium 135
Potassium 4.2
Chloride 102
Carbon Dioxide 27
BUN 12
Creatinine 0.7
Glucose 94
Calcium 9.0
Vital Signs:
Vital Signs
Temp Pulse Resp BP Pulse Ox
36.8 C 84 17 157/58 99
10/18/24 10:00 10/18/24 10:02 10/18/24 10:00 10/18/24 10:02 10/18/24 10:00
I&O
10/17/24 10/18/24 10/19/24
06:59 06:59 06:59
Intake Total 420 / 420 240 / 240
Output Total 475 / 475 600 / 600
Balance -55 / -55 -360 / -360
Review of Systems
-
Unable to obtain full review of systems at this time due to: Dementia
History Source: Patient
Physical Exam
-
General: Well Developed, Well Nourished, No Apparent Distress, Comfortable, Conversant and Appears Chronically Ill; Negative Respiratory Distress
HEENT: Normocephalic, Atraumatic, Nose Appears Normal and Ears Appear Normal; Negative Oxygen
Respiratory: Clear to Auscultation and Non Labored Respirations; Negative Accessory Resp Muscle Use
Cardiac: Regular Rhythm and S1/S2
GI: Soft, Nontender, Nondistended and Normal Bowel Sounds
Skin: Warm and Dry
Neuro: Awake and Alert
Psych: Calm; Negative Intact Judgement/Insight
Data Reviewed
-
CT Scan: Report Reviewed by me
Labs: Labs Reviewed by me
--- NOTE | 2024-10-18 11:02 | CM ---
Spoke with Paola from [facility] [phone], they had received a report because patient was found on the floor.
Please update Paola with facility and transfer date.
--- NOTE | 2024-10-18 13:24 | W.DCSUMMARY ---
Addendum entered and electronically signed by Arely Saucedo MD 10/19/24 12:04:
Patient discharged on patient discharge on 10/27/2024
There has been no change clinically on the day of discharge
Original Note:
Discharge Summary
Discharge Data
Date of Admission: 10/08/24
Date of Discharge: 10/18/24
-
Pending Results: No
Hospital Course
Principal Diagnosis:
Ambulatory dysfunction/possible fall likely secondary to alcohol use disorder.
Acute metabolic encephalopathy suspect secondary to alcohol withdrawal.
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
Chronic Diagnoses:�
Hyponatremia likely secondary to poor p.o. intake/alcohol use, resolved
History of left humeral shaft fracture and left rotator cuff tear status post left humeral shaft open reduction internal fixation and left open rotator cuff repair in January [address] Hernesto Raines
Essential hypertension
Hyperlipidemia on atorvastatin
History of stroke
Anxiety/depression
Alcohol use disorder, alcohol dependency
Consultations:�
Orthopedic
Procedures:�
None
Clinical course:�
This is 74-year-old male with past medical history as stated above who was found down on the ground in his apartment covered in feces. Patient could not seem the event.
Problem 1:
Ambulatory dysfunction/possible fall likely secondary to alcohol use disorder.
Acute metabolic encephalopathy suspect secondary to alcohol withdrawal.
His CT head showed no acute intracranial abnormality.
The patient completed phenobarbital taper for alcohol withdrawal.
His mental status improved which is awake and conversant but not orientated.
He likely has alcohol related dementia.
He was discharged to SNF per PT OT recommendation.
As for the rest of his medical problems, they were stable during his hospital stay.
Discharge Plan
-
Patient Disposition: Senior Care/SNF
Discharge Diagnosis/Procedures: ambulatory dysfunction/possible fall likely secondary to alcohol use disorder;
acute metabolic encephalopathy suspect secondary to alcohol withdrawal;
suspect dementia 2/2 chronic alcohol abuse
Condition: Fair
Diet: As tolerated
Activity: As tolerated
Driving Restrictions: No driving
Referrals:
UNKNOWN - PT NOT,INTERVIEWE [Family Provider] - in less than 1 week
Prescriptions:
New
folic acid 1 mg Tablet
1 mg PO DAILY Qty: 30 0RF
thiamine mononitrate (vit B1) 100 mg Tablet
100 mg PO BID Qty: 60 0RF
Continued
metoprolol tartrate 25 MG tablet
12.5 mg PO BID
atorvastatin 40 MG tablet
40 mg PO QPM 0RF
clopidogrel 75 MG tablet
75 mg PO DAILY Qty: 90 0RF
cyanocobalamin (vitamin B-12) 1,000 MCG tablet
1,000 mcg PO DAILY
lisinopril 20 mg Tablet
20 mg PO DAILY
Discharge Orders:
Discharge Patient (As Directed); Ordered 10/18/24
Ordered By: Arely Saucedo
Discharge Date and Time
Print Language: BAHRAINI
[2024-10-18 15:16] VITALS: BP 135/54
--- NOTE | 2024-10-18 16:22 | CM ---
Addendum entered by ANTONIO Davies 10/18/24 16:35:
Received call from Sadia martinez at [facility] who stated that they are understaffed this evening and will be able to take patient in the am when full staff is there.
Will also update office on aging to alert APS of discharge plan.
Original Note:
Received notification of patient being medically cleared for d/c. Patient accepted at [facility] (spoke with Sadia Gonzalez in admissions). Will update contact. # For report [phone] and .
Will review IMM with patient's contact.
Plan: Case management will continue to follow and assist with discharge planning. [facility].
[2024-10-18] MEDS: LIPITOR 40 MG PO (18:02)
[2024-10-18] MEDS: LOVENOX SC ×2 (18:02→18:11)
[2024-10-18 23:16] VITALS: BP 118/70
[2024-10-19 07:05] VITALS: BP 102/46
[2024-10-19 07:53] LABS: Blood Urea Nitrogen 16 mg/dl (9-20); Calcium 8.8 mg/dl (8.4-10.2); Carbon Dioxide 29 mmol/L (22-30); Chloride 101 mmol/L (98-107); Estimated Creatinine Clearance 82 ml/min; Glucose 109 mg/dl (70-99); Potassium 3.5 mmol/L (3.5-5.1); Sodium 133 mmol/L (135-145); eGFR > 60.00
[2024-10-19] MEDS: NICODERM TRANSDERMAL TRANSDERM ×2 (08:19→09:56)
[2024-10-19] MEDS: VITAMIN B1 100 MG PO (08:19)
[2024-10-19] MEDS: FOLVITE 1 MG PO (08:20)
[2024-10-19] MEDS: ZESTRIL 20 MG PO (08:20)
[2024-10-19] MEDS: VITAMIN B-12 1000 MCG PO (08:20)
[2024-10-19] MEDS: PLAVIX 75 MG PO (08:20)
[2024-10-19] MEDS: LOPRESSOR 12.5 MG PO (08:20)
--- NOTE | 2024-10-19 10:40 | CM ---
[facility]
Plan: Case management will continue to follow and assist with discharge. [facility] today.
[2024-10-19] MEDS: KLOR-CON 40 MEQ PO (10:44)
--- NOTE | 2024-10-19 10:53 | W.PN.HOSP.TC ---
Addendum entered and electronically signed by Arely Saucedo MD 10/19/24 12:05:
d/w CM
total DC time 36 min
Original Note:
Today's Communication/Plan
-
for SNF
Assessment / Plan
Assessment / Plan
74-year-old male with past medical history of hypertension, hyperlipidemia, anxiety/depression, prior CVA, alcohol use disorder, was found down on the ground in his apartment covered in feces. Patient did not seem to remember why he was on the
ground. Was not seen for 2 days. Friend called 911 and brought patient for evaluation. Friend and medical proxy at bedside who helps provide history. Patient denied complaints and initially said he wanted to go home. Patient did not drink alcohol
in 3 days, was drinking at least 6 beers per day at that time.
Patient tachycardic initially. EKG showed sinus rhythm with premature atrial complexes, right bundle branch block which is old. Labs showed mild hyponatremia sodium of 128. Creatinine kinase of 615. Alcohol level negative. Patient with ambulatory
dysfunction/possible fall likely secondary to alcohol use disorder. Mild hyponatremia likely secondary to poor p.o. intake/alcohol use. Patient normally is alert and able to take care of his ADLs, he is known to be incontinent of urine with frequent
UTIs.
Assessment/Plan
# ambulatory dysfunction/possible fall likely secondary to alcohol use disorder.
# acute metabolic encephalopathy suspect secondary to alcohol withdrawal
CT head: No acute intracranial abnormality noted.
Completed phenobarb taper
No longer need [facility] protocol for alcohol withdrawal
Mental status improved, pt is awake/conversant, follows command and able to move all 4 extremities; but not orientated and with poor insight likely 2/2 chronic alcohol abuse
No need to check MRI brain anymore
repeat urine culture mixed hernan, stop further empiric Ceftriaxone
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
# hyponatremia likely secondary to poor p.o. intake/alcohol use, resolved
# hypokalemia
repleted
# Mild Non-Traumatic Rhabdomyolysis, resolved
# History of left humeral shaft fracture and left rotator cuff tear status post left humeral shaft open reduction internal fixation and left open rotator cuff repair in January [address] Hernesto Raines
X-ray without acute fracture
orthopedics was consulted
# essential hypertension
continue lisinopril
# hyperlipidemia
continue atorvastatin
# Hx CVA
continue clopidogrel
# anxiety/depression
# Hx ETOH dependency
Code status: full code
DVT Prophylaxis: Lovenox sq
Dispo: SNF per PT OT recc
DW CM
Anticipated Discharge: Today
Subjective/Interval History
-
Date of Service: October 19, 2024
Objective Data
-
Labs:
Laboratory Results
10/19/24
06:59
Sodium 133 L
Potassium 3.5
Chloride 101
Carbon Dioxide 29
BUN 16
Creatinine 0.7
Glucose 109 H
Calcium 8.8
Vital Signs:
Vital Signs
Temp Pulse Resp BP Pulse Ox
36.5 C 79 19 102/46 99
10/19/24 07:05 10/19/24 07:05 10/19/24 07:05 10/19/24 07:05 10/19/24 07:05
I&O
10/18/24 10/19/24 10/20/24
06:59 06:59 06:59
Intake Total 240 / 240
Output Total 600 / 600 500 / 500
Balance -360 / -360 -500 / -500
Review of Systems
-
Unable to obtain full review of systems at this time due to: Dementia
History Source: Patient
Physical Exam
-
General: Well Developed, Well Nourished, No Apparent Distress, Comfortable, Conversant and Appears Chronically Ill; Negative Respiratory Distress
HEENT: Normocephalic, Atraumatic, Nose Appears Normal and Ears Appear Normal; Negative Oxygen
Respiratory: Clear to Auscultation and Non Labored Respirations; Negative Accessory Resp Muscle Use
Cardiac: Regular Rhythm and S1/S2
GI: Soft, Nontender, Nondistended and Normal Bowel Sounds
Skin: Warm and Dry
Neuro: Awake and Alert
Psych: Calm; Negative Intact Judgement/Insight
Data Reviewed
-
CT Scan: Report Reviewed by me
Labs: Labs Reviewed by me
[2024-10-19 11:49] VITALS: BP 147/62
== END 2024-10-19 13:37 | DRG 896 ==
LOC: 3 WEST ACU 20:07
PROVIDERS: Hospitalist; Nurse Practitioner Family; Registered Nurse; ADMITTING PHYSICIAN Hospitalist; ATTENDING PHYSICIAN Internal Medicine; CONSULT PHYSICIAN Orthopaedic Surgery; EMERGENCY PHYSICIAN Emergency Medicine
DX: F10.939 Alcohol use, unspecified with withdrawal, unspecified (principal); G93.41 Metabolic encephalopathy; E87.1 Hypo-osmolality and hyponatremia; I69.351 Hemiplegia and hemiparesis following cerebral infarction affecting right dominant side; M62.82 Rhabdomyolysis; N39.0 Urinary tract infection, site not specified; W19.XXXA Unspecified fall, initial encounter; I10 Essential (primary) hypertension; E78.00 Pure hypercholesterolemia, unspecified; Z86.73 Personal history of transient ischemic attack (TIA), and cerebral infarction without residual deficits; F32.A Depression, unspecified; F41.9 Anxiety disorder, unspecified; F17.210 Nicotine dependence, cigarettes, uncomplicated; Z79.02 Long term (current) use of antithrombotics/antiplatelets; R32 Unspecified urinary incontinence; Z87.440 Personal history of urinary (tract) infections; E86.0 Dehydration; M06.9 Rheumatoid arthritis, unspecified; Z79.899 Other long term (current) drug therapy
CPT/HCPCS: 70450; 73030; 73070; 80048; 80053; 80306; 80307; 81003; 81015; 82010; 82077; 82550; 82977; 83735; 83930; 83935; 84100; 85025; 85027; 85610; 85730; 87070; 87086; 93005; 96360; 97162; 97530; 99285